=== PATIENT | male | born 1990 | race African-American/Black ===

== ENCOUNTER 2018-10-30 10:53 | Emergency (ER) | payer SELFPAY ==
[2018-10-30] MEDS ORDERED: OXYCODONE-ACETAMINOPHEN 5-325 MG TABLET PO ONE (11:12)
[2018-10-30] MEDS ORDERED: DIPH/PERTUSS(ACELL)/TETANUS VAC/PF 0.5 ML SYR (>=10YO) IM ONE ×2 (11:12→13:30)
--- NOTE | 2018-10-30 11:14 | ER Document Report ---
ED Medical Screen (RME) - General Chief Complaint: Fall Injury Stated Complaint: FINGER INJURY Time Seen by Provider: 10/30/18 11:11 Primary Care Provider: STEPHEN REED MD [Primary Care Provider] - Follow up as needed Mode of Arrival: Ambulatory Information source: Patient Notes: 28-year-old male presented to ED for injury to the second and third finger on the left hand and the right arm abrasion when he fell down the stairs. The second and third fingers do have deformity noted. Patient is alert oriented respirations regular and unlabored speaking in full sentences walks with even steady gait. Patient states he does have a history of Hodgkin's lymphoma and tonsils and adenoid. He states his tetanus is not up-to-date. He will be given a tetanus shot while in the emergency room. 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 I have greeted and performed a rapid initial assessment of this patient. A comprehensive ED assessment and evaluation of the patient, analysis of test results and completion of medical decision making process will be conducted by an additional ED providers. Dictation of this chart was performed using voice recognition software; therefore, there may be some unintended grammatical errors. TRAVEL OUTSIDE OF THE [place] IN LAST 30 DAYS: No - Related Data Allergies/Adverse Reactions: No Known Allergies Allergy (Unverified 10/30/18 10:56) Past Medical History - Social History Frequency of alcohol use: Heavy Drug Abuse: None Renal/ Medical History: Denies: Hx Peritoneal Dialysis Past Surgical History: Reports: Hx Tonsillectomy Physical Exam - Vital signs Vitals: Temp Pulse BP Pulse Ox 98 F 86 144/96 H 100 10/30/18 11:08 10/30/18 11:08 10/30/18 11:08 10/30/18 11:08 Course - Vital Signs Vital signs: Temp Pulse Resp BP Pulse Ox 98 F 86 144/96 H 100 10/30/18 11:08 10/30/18 11:08 10/30/18 11:08 10/30/18 11:08 Doctor's Discharge - Discharge Referrals: STEPHEN REED MD [Primary Care Provider] - Follow up as needed
--- NOTE | 2018-10-30 12:02 | RADIOLOGY REPORT (SQ) ---
EXAM DESCRIPTION: HAND LEFT 3 VIEWS COMPLETED DATE/TIME: 10/30/2018 11:31 am REASON FOR STUDY: injury 2 and3 finger left COMPARISON: None. EXAM PARAMETERS: NUMBER OF VIEWS: Three views. TECHNIQUE: AP, lateral and oblique radiographic images acquired of the left hand. LIMITATIONS: None. FINDINGS: MINERALIZATION: Normal. BONES: Dorsal dislocation of the 2nd and 3rd digits at the proximal interphalangeal joint. The is ad ditional mild ulnar displacement. No definite fracture identified. JOINTS: Dislocation at the 2nd and 3rd proximal interphalangeal joints. SOFT TISSUES: Soft tissue swelling about the 2nd and 3rd digit. No radiopaque foreign body. OTHER: No other significant finding. IMPRESSION: Dorsal dislocation of the 2nd and 3rd digits at the proximal interphalangeal joints. No definite fracture identified. TECHNICAL DOCUMENTATION: JOB ID: [id number] [employer]- All Rights Reserved Reading location - IP/workstation name: [email or web address]
[2018-10-30] MEDS ORDERED: LIDOCAINE 1.5% INJ-MPF (15 MG/ML) 20 ML AMPUL INJ ONE (14:04)
[2018-10-30] MEDS ORDERED: LIDOCAINE 1% INJ-PF (10 MG/ML) 30 ML SDV ONE (14:13)
--- NOTE | 2018-10-30 14:28 | ER Document Report ---
ED Fall - General Chief Complaint: Fall Injury Stated Complaint: FINGER INJURY Time Seen by Provider: 10/30/18 11:11 Primary Care Provider: STEPHEN ERED MD [Primary Care Provider] - Follow up as needed KAMALA MAYORGA DO [ACTIVE STAFF] - Follow up in 1 week Mode of Arrival: Ambulatory Information source: Patient TRAVEL OUTSIDE OF THE [place] IN LAST 30 DAYS: No - HPI Notes: Patient is a 28-year-old male that presents to the emergency department for chief complaint of left finger injury. Patient states that just prior to coming to the emergency room today he stumbled falling backwards landing on an outstretched left arm. He reports feeling like his left second and third fingers are broken. He did not take pain medicine prior to coming in. He denies any numbness or weakness. He reports difficulty bending his fingers. He denies previous injury to this hand. He is unsure of his last tetanus vaccine. Past Medical History: History of Hodgkin's lymphoma in remission Past Surgical History: Right anterior chest Mediport placement and removal Social History: Denies drugs alcohol and tobacco Family History: Reviewed and noncontributory for presenting illness Allergies: Reviewed, see documented allergy list. REVIEW OF SYSTEMS: CONSTITUTIONAL : No fever No chills No diaphoresis No recent illness EENT: No vision changes No congestion No sore throat CARDIOVASCULAR: No chest pain No palpitations RESPIRATORY: No shortness of breath No cough No difficulty breathing GASTROINTESTINAL: No abdominal pain No nausea No vomiting No diarrhea GENITOURINARY: No dysuria No hematuria No difficulty urinating MUSCULOSKELETAL: No back pain No leg pain Left hand pain SKIN: No rashes No lesions LYMPHATIC: No swollen, enlarged glands. NEUROLOGICAL: No lightheadedness No headache No weakness No paresthesias PSYCHIATRIC: No anxiety No depression PHYSICAL EXAMINATION: Vital signs reviewed, nursing noted reviewed. GENERAL: Well-appearing, well-nourished and in no acute distress. HEAD: Atraumatic, normocephalic. EYES: Eyes appear normal, extraocular movements intact, sclera anicteric, conjunctiva are normal. ENT: nares patent, oropharynx clear without exudates. Moist mucous membranes. NECK: Normal range of motion, supple without lymphadenopathy LUNGS: Breath sounds clear to auscultation bilaterally and equal. No wheezes rales or rhonchi. HEART: Regular rate and rhythm without murmurs ABDOMEN: Soft, nontender, normoactive bowel sounds. No rebound, guarding, or rigidity. No masses appreciated. EXTREMITIES: Deformity and decreased range of motion at left second and third PIP joint with associated bony tenderness. Normal left wrist and elbow exam NEUROLOGICAL: No focal neurological deficits. Moves all extremities spontaneously Motor and sensory grossly intact on exam. PSYCH: Normal mood, normal affect. SKIN: Warm, Dry, normal turgor, right elbow superficial linear abrasion with no bleeding - Related data Allergies/Adverse Reactions: No Known Allergies Allergy (Unverified 10/30/18 10:56) Past Medical History - General Information source: Patient - Social History Smoking Status: Current Every Day Smoker Frequency of alcohol use: Heavy Drug Abuse: None Family History: Reviewed & Not Pertinent Patient has suicidal ideation: No Patient has homicidal ideation: No Renal/ Medical History: Denies: Hx Peritoneal Dialysis Past Surgical History: Reports: Hx Tonsillectomy Physical Exam - Vital signs Vitals: Temp Pulse BP Pulse Ox 98 F 86 144/96 H 100 10/30/18 11:08 10/30/18 11:08 10/30/18 11:08 10/30/18 11:08 Course - Re-evaluation Re-evalutation: 10/30/18 14:26 Vitals reviewed. Nursing notes reviewed. Patient has a dislocation of his left second and third PIP. The dislocations were reduced. Patient placed in finger splints. Tolerated well. He will be referred to orthopedics for follow-up. Hand X-Ray 10/30/18 11:12 IMPRESSION: Dorsal dislocation of the 2nd and 3rd digits at the proximal interphalangeal joints. No definite fracture identified. - Vital Signs Vital signs: Temp Pulse Resp BP Pulse Ox 98 F 86 144/96 H 100 10/30/18 11:08 10/30/18 11:08 10/30/18 11:08 10/30/18 11:08 Procedures - Immobilization Left 3rd digit Time completed: 15:06 Pre-Proc Neuro Vasc Exam: Normal Immobilizer type: Finger splint (Static) Performed by: PCT Post-Proc Neuro Vasc Exam: Normal Alignment checked and good: Yes Left 2nd digit Time completed: 15:06 Pre-Proc Neuro Vasc Exam: Normal Immobilizer type: Finger splint (Static) Performed by: PCT Post-Proc Neuro Vasc Exam: Normal Alignment checked and good: Yes - Joint Reduction/Fracture Care Left 2nd digit Time completed: 14:45 Consent obtained: Yes - verbal Conscious sedation: No Pre-procedure NV exam: Yes Post-procedure NV exam: Yes Post-reduction x-ray: Joint reduced Reduction attempts: 1 Complications: No Notes: 10/30/18 15:07 Digital block of second digit performed using lidocaine 1%, 2 mL's. Good digit anesthesia achieved. Traction placed on dislocation with good reduction. Normal range of motion after reduction. Splinted for immobilization. Tolerated well with no complications. Left 3rd digit Time completed: 14:45 Consent obtained: Yes Pre-procedure NV exam: Yes Post-procedure NV exam: Yes Post-reduction x-ray: Joint reduced Reduction attempts: 1 Complications: No Notes: 10/30/18 15:08 Digital block of third digit performed using lidocaine 1%, 2 mL's. Good digit anesthesia achieved. Traction placed on dislocation with good reduction. Normal range of motion after reduction. Splinted for immobilization. Tolerated well with no complications. Discharge - Discharge Clinical Impression: Dislocation of PIP joint of finger Qualifiers: Encounter type: initial encounter Qualified Code(s): S63.289A - Dislocation of proximal interphalangeal joint of unspecified finger, initial encounter Avulsion fracture of middle phalanx of finger Qualifiers: Encounter type: initial encounter Fracture type: closed Qualified Code(s): S62.629A - Displaced fracture of middle phalanx of unspecified finger, initial encounter for closed fracture Condition: Stable Disposition: HOME, SELF-CARE Instructions: Finger Dislocation ([facility]) Additional Instructions: Please return to the emergency department if you have any worsening, or concern of your symptoms. Please return to the emergency department if you develop chest pain, difficulty breathing, severe abdominal pain, or ongoing vomiting. Please follow-up with your primary care physician in 2-3 days and any other recommended physicians. If prescribed, take all medications as directed. If you have any questions or concerns do not hesitate to return the emergency department for evaluation. Referrals: STEPHEN REED MD [Primary Care Provider] - Follow up as needed KAMALA MAYORGA DO [ACTIVE STAFF] - Follow up in 1 week
--- NOTE | 2018-10-30 14:54 | RADIOLOGY REPORT (SQ) ---
EXAM DESCRIPTION: HAND LEFT 2 VIEWS COMPLETED DATE/TIME: 10/30/2018 2:41 pm REASON FOR STUDY: dislocation reduction COMPARISON: 10/30/2018. EXAM PARAMETERS: NUMBER OF VIEWS: Three views. TECHNIQUE: AP, lateral and oblique radiographic images acquired of the left hand. LIMITATIONS: None. FINDINGS: MINERALIZATION: Normal. BONES: Interval closed reduction of the dislocations of the PIP joints of the 2nd and 3rd fingers, no w in anatomic alignment. There are displaced avulsion fractures involving the anterior base of the m iddle phalanx of the 2nd and 3rd fingers, demonstrated on the lateral image. JOINTS: No effusions. SOFT TISSUES: No soft tissue swelling. No foreign body. OTHER: No other significant finding. IMPRESSION: SATISFACTORY POSITIONING OF THE PIP JOINTS OF THE 2ND AND 3RD FINGERS FOLLOWING CLOSED R EDUCTION. THERE ARE DISPLACED AVULSION FRACTURES INVOLVING THE ANTERIOR BASE OF THE MIDDLE PHALANX O F THE 2ND AND 3RD FINGERS. TECHNICAL DOCUMENTATION: JOB ID: [id number] [employer]- All Rights Reserved Reading location - IP/workstation name: [email or web address]
[2018-10-30 15:41] VITALS: BP 136/82
== END 2018-10-30 15:41 | disposition home or self-care (01) ==
LOC: ER 10:53
DX: S63.271A Dislocation of unspecified interphalangeal joint of left index finger, initial encounter (principal); S63.273A Dislocation of unspecified interphalangeal joint of left middle finger, initial encounter; S62.629A Displaced fracture of middle phalanx of unspecified finger, initial encounter for closed fracture; S40.811A Abrasion of right upper arm, initial encounter; W10.9XXA Fall (on) (from) unspecified stairs and steps, initial encounter; Z23 Encounter for immunization; F17.210 Nicotine dependence, cigarettes, uncomplicated
CPT/HCPCS: 99283; 90471; 73130; 73120; 90715; 26770 ×2; J3490

== ENCOUNTER 2019-07-10 12:36 | Inpatient (IN) | payer SELFPAY ==
--- NOTE | 2019-07-10 12:50 | ER Document Report ---
ED General - General Chief Complaint: Overdose Stated Complaint: POSSIBLE OVERDOSE Time Seen by Provider: 07/10/19 12:46 Primary Care Provider: STEPHEN REED MD [NO LOCAL MD] - Follow up as needed Notes: HPI: 28-year-old male presents today with EMS secondary to "friends" finding him unconscious. EMS states when they arrived his skin was mottled his extremities were bluish in color. He did have a pulse. It took up to 6 mg of Narcan for the patient to become arousable. Hypothermia present. Patient did start to vomit copiously. Patient intermittently answers questions. ROS: See HPI Unable to obtain secondary to patient's condition Reviewed vital signs and nursing note as charted by RN. PHYSICAL EXAM: CONSTITUTIONAL: Patient answers questions intermittently. Piloerection is present HEAD: Normocephalic; atraumatic EYES: Pupils are now dilated. Sclerae nonicteric; no nystagmus ENT: Normal nose; no rhinorrhea; moist mucous membranes; pharynx without lesions noted NECK: Supple without meningismus; non-tender; no cervical lymphadenopathy, no masses CARD: Tachycardic and regular; no murmurs; symmetric distal pulses RESP: Normal chest excursion without splinting or tachypnea; breath sounds clear and equal bilaterally; scattered rhonchi ABD/GI: Normal bowel sounds; non-distended; soft, non-tender; no palpable organomegaly or masses BACK: The back appears normal and is non-tender to palpation EXT: Normal ROM in all joints; non-tender to palpation; no edema SKIN: piloerection is present NEURO: CN 2-12 intact; 5/5 bilateral upper and lower extremity strength with sensation intact to light touch TRAVEL OUTSIDE OF THE [place] IN LAST 30 DAYS: No - Related Data Allergies/Adverse Reactions: No Known Allergies Allergy (Unverified 10/30/18 10:56) Past Medical History - Social History Smoking Status: Unknown if Ever Smoked Family History: Reviewed & Not Pertinent Patient has suicidal ideation: No Patient has homicidal ideation: No Renal/ Medical History: Denies: Hx Peritoneal Dialysis Past Surgical History: Reports: Hx Tonsillectomy Physical Exam - Vital signs Vitals: Resp BP Pulse Ox 25 H 123/79 97 07/10/19 12:44 07/10/19 12:44 07/10/19 12:44 Course - Re-evaluation Re-evalutation: 07/10/19 12:49 Given the above history and physical we will place the patient on the monitor, provide nausea medications and fluids, will reassess the patient's mental status to evaluate for the need of a CT scan, and reassess the patient's abdomen. 07/10/19 12:56 EKG shows a heart rate of 99, tachycardia with no discernible P waves. Narrow QRS 07/10/19 14:27 Patient became more somnolent. We did provide Narcan with which did awaken the patient somewhat. This was 1 mg IV. Patient's mom is in the room and states it was "definitely heroin". We will provide a re-dosing of 2 mg. If this is successful, we will provide an infusion. 07/10/19 17:08 Imaging and labs as recorded. I will discuss with the hospitalist the choice of antibiotics. Patient was on the Narcan drip for him 20 minutes. He subsequently stood up took out his IV and started jumping up and down on the bed that he had to urinate. After the Narcan drip was out of the patient's arm for around 30 minutes he started to become somnolent again. We have replaced the IV and started the patient again on a Narcan drip. Patient is currently sleeping with stable BP with a heart rate of 110. - Vital Signs Vital signs: Temp Pulse Resp BP Pulse Ox 95.4 F L 14 127/87 H 100 07/10/19 14:28 07/10/19 14:01 07/10/19 14:01 07/10/19 14:01 - Laboratory Result Diagrams: 07/10/19 12:56 07/10/19 12:56 Laboratory results interpreted by me: 07/10/19 07/10/19 12:56 12:56 WBC 17.7 H RDW 14.5 H Lymph % (Auto) 10.1 L Absolute Neuts (auto) 15.0 H Seg Neutrophils % 84.5 H Carbon Dioxide 32 H Glucose 124 H Salicylates < 1.0 L Acetaminophen < 10 L Discharge - Discharge Clinical Impression: Overdose Qualifiers: Encounter type: initial encounter Hypothermia Qualifiers: Encounter type: initial encounter Qualified Code(s): T68.XXXA - Hypothermia, i nitial encounter Altered mental status Qualifiers: Altered mental status type: unspecified Qualified Code(s): R41.82 - Altered mental status, unspecified Condition: Serious Disposition: ADMITTED INPATIENT Admitting Provider: Jason (Hospitalist) Unit Admitted: ICU Referrals: STEPHEN REED MD [NO LOCAL MD] - Follow up as needed
--- NOTE | 2019-07-10 13:50 | EKG REPORT ---
SEVERITY:- ABNORMAL ECG - ATRIAL FIBRILLATION NONSPECIFIC INTRAVENTRICULAR CONDUCTION DELAY INFERIOR Q WAVES, PROBABLY NORMAL VARIATION : Confirmed by: Toby Glasgow MD 10-Jul-2019 13:50:31
[2019-07-10] MEDS ORDERED: NALOXONE HCL INJ 2 MG/2 ML DISP.SYRIN IV ONE ×2 (14:01→14:27)
[2019-07-10] MEDS ORDERED: NALOXONE HCL INJ/PF 0.4 MG/1 ML SDV IV ONE (14:08)
[2019-07-10] MEDS ORDERED: NALOXONE HCL INJ 2 MG/2 ML DISP.SYRIN ONE (15:01)
[2019-07-10] MEDS ORDERED: NORMAL SALINE 500 ML with NALOXONE HCL 2 MG IV PRN ×2 (15:11)
[2019-07-10] MEDS ORDERED: NALOXONE HCL IV PRN ×2 (15:16)
[2019-07-10] MEDS ORDERED: NORMAL SALINE IV PRN ×2 (15:16)
[2019-07-10 15:18] LABS: ABSOLUTE EOSINOPHILS # (AUTO) 0.1 10^3/uL (0.0-0.6); ABSOLUTE LYMPHOCYTES (AUTO) 1.8 10^3/uL (0.5-4.7); ABSOLUTE MONOCYTES (AUTO) 0.8 10^3/uL (0.1-1.4); BASOPHILS % (AUTO) 0.2 % (0-2); EOSINOPHILS % (AUTO) 0.5 % (0-6); HEMATOCRIT 45.4 % (37.9-51.0); HEMOGLOBIN 14.9 g/dL (13.5-17.0); LYMPHOCYTES % (AUTO) 10.1 % (13-45); MEAN CORPUSCULAR HEMOGLOBIN 27.3 pg (27.0-33.4); MEAN CORPUSCULAR HGB CONC 32.9 g/dL (32.0-36.0); MEAN CORPUSCULAR VOLUME 83 fl (80-97); MONOCYTES % (AUTO) 4.7 % (3-13); PLATELET COUNT 258 10^3/uL (150-450); RED BLOOD COUNT 5.46 10^6/uL (4.35-5.55); RED CELL DISTRIBUTION WIDTH 14.5 % (11.5-14.0); SEGMENTED NEUTROPHILS % (AUTO) 84.5 % (42-78); TOTAL CELLS COUNTED % (AUTO) 100 %; WHITE BLOOD COUNT 17.7 10^3/uL (4.0-10.5)
[2019-07-10 15:38] LABS: ALKALINE PHOSPHATASE 108 U/L (38-126); ANION GAP 12 (5-19); ASPARTATE AMINO TRANSFERASE 38 U/L (17-59); BILIRUBIN,TOTAL 0.3 mg/dL (0.2-1.3); BLOOD UREA NITROGEN 18 mg/dL (7-20); CALCIUM 9.4 mg/dL (8.4-10.2); CARBON DIOXIDE 32 mmol/L (22-30); CHLORIDE 98 mmol/L (98-107); GLUCOSE 124 mg/dL (75-110); POTASSIUM 3.9 mmol/L (3.6-5.0); TOTAL PROTEIN 7.9 g/dL (6.3-8.2)
[2019-07-10 15:46] LABS: ACETAMINOPHEN < 10 ug/mL (10-30); ALCOHOL < 10 mg/dL (NONE DETECTED); SALICYLATE < 1.0 mg/dL (2.0-20.0)
--- NOTE | 2019-07-10 16:18 | RADIOLOGY REPORT (SQ) ---
EXAM DESCRIPTION: CHEST SINGLE VIEW COMPLETED DATE/TIME: 07/10/2019 4:01 pm REASON FOR STUDY: 17: overdose with AMS COMPARISON: None. EXAM PARAMETERS: NUMBER OF VIEWS: One view. TECHNIQUE: Single frontal radiographic view of the chest acquired. RADIATION DOSE: NA LIMITATIONS: None. FINDINGS: LUNGS AND PLEURA: Airspace disease in the left lower lobe. Possible faint involvement of the upper lobes. No pleural effusion or pneumothorax. MEDIASTINUM AND HILAR STRUCTURES: No masses. Contour normal. HEART AND VASCULAR STRUCTURES: Heart normal in size. Normal vasculature. BONES: No acute findings. HARDWARE: None in the chest. OTHER: No other significant finding. IMPRESSION: AIRSPACE DISEASE IN THE LEFT LOWER LOBE MAY BE DUE TO PNEUMONIA AND/OR ASPIRATION. POSS IBLE FAINT INVOLVEMENT OF THE UPPER LOBES. TECHNICAL DOCUMENTATION: JOB ID: [id number] [employer]- All Rights Reserved Reading location - IP/workstation name: [email or web address]
[2019-07-10] MEDS ORDERED: NORMAL SALINE 1000 ML 1,000 ML IV ONE (17:10)
[2019-07-10] MEDS ORDERED: DEXTROSE 40% GEL 15 GM TUBE PO PRN ×2 (18:08)
[2019-07-10] MEDS ORDERED: DEXTROSE 50%-WATER 25 GM/50 ML DISP.SYRIN IV PRN ×2 (18:08)
[2019-07-10] MEDS ORDERED: GLUCAGON,HUMAN RECOMB 1 MG INJ SUBCUT PRN (18:08)
[2019-07-10] MEDS ORDERED: NORMAL SALINE 1000 ML 1,000 ML IV PRN (18:08)
[2019-07-10] MEDS ORDERED: ACETAMINOPHEN 650 MG SUPP.RECT PR PRN (18:08)
[2019-07-10 18:22] LABS: AMORPHOUS SEDIMENT,URINE TRACE /HPF; APPEARANCE,URINE SLIGHTLY-CLOUDY; BILIRUBIN,URINE NEGATIVE (NEGATIVE); COLOR,URINE YELLOW; GLUCOSE, URINE >=500 mg/dL (NEGATIVE); KETONES,URINE NEGATIVE (NEGATIVE); LEUKOCYTE ESTERASE,URINE NEGATIVE (NEGATIVE); NITRITE,URINE NEGATIVE (NEGATIVE); PROTEIN,URINE 100 mg/dL (NEGATIVE); URINE SPECIFIC GRAVITY 1.018; UROBILINOGEN,URINE NEGATIVE mg/dL (<2.0)
--- NOTE | 2019-07-10 18:34 | CRITICAL CARE ADMISSION REPORT ---
HPI Date:: 07/10/19 Time:: 18:00 Reason for ICU Reason:: Narcan drip and obtundation HPI: This patient is a 28 yo man who was found by friends on the floor of a room mini gela responsive and taken to the ED where he was given narcan and responded. He has a history of drug abuse and according to family is employed has not missed work and is not 'hard core' addict nor has he been suicidal. This seems to be an accidental OD. He was placed on a narcan drip but became agitated and pulled out iv stood up to go to the bathroom and collapsed back in bed minimally responsive again. IV restarted and narcan drip reapplied necessitating the ICU admission. Of note he was found in vomit and appears to have aspirated with an infiltrate on his L base. Temp initially 92. Now 96. In afib on admission now NSR. History obtained from:: Family and ED doctor - Diagnosis/Plan (1) Overdose Qualifiers: Encounter type: initial encounter Is this a current diagnosis for this admission?: Yes Plan: Continue narcan drip to keep RR > 10 and not precipitate a WD response. A anticipate he will be awake and off narcan by tomorrow. (2) Aspiration into airway Qualifiers: Encounter type: initial encounter Qualified Code(s): T17.908A - Unspecified foreign body in respiratory tract, part unspecified causing other injury, initial encounter Is this a current diagnosis for this admission?: Yes Plan: With being found in vomit and evidence of aspiration on CXR he most likely aspirated. No antibiotics, supprotive care with PRN nebulizers and O2. (3) Hypothermia Qualifiers: Encounter type: initial encounter Qualified Code(s): T68.XXXA - Hypothermia, initial encounter Is this a current diagnosis for this admission?: Yes Plan: Quickly resolving. (4) Atrial fib/flutter, transient Is this a current diagnosis for this admission?: Yes Plan: Resolved. - . Plan Summary: Keep narcan drip and titrate to keep RR > 10. Past Medical History Musculoskeletal History Note: Pulled muscle in shoulder Psychiatric Medical History: Reports: Substance Abuse, Other - For a history of 5 years off and on according to mother. Past Surgical History Past Surgical History: Reports: Tonsillectomy Social/Family History - Social History Smoking Status: Unknown if Ever Smoked Drugs: Other - Narcotics-details not known - Medication/Allergies Allergies/Adverse Reactions: No Known Allergies Allergy (Unverified 10/30/18 10:56) Review of Systems ROS unobtainable: Due to mental status Physical Exam Vital Signs: Temp Pulse Resp BP Pulse Ox 95.4 F L 38 H 115/76 100 07/10/19 14:28 07/10/19 18:01 07/10/19 18:01 07/10/19 18:01 Intake & Output 07/09/19 07/10/19 07/11/19 06:59 06:59 06:59 Weight 64.3 kg Weight/Height Weight 64.3 kg General appearance: PRESENT: no acute distress, well-developed, well-nourished Head exam: PRESENT: atraumatic, normocephalic Eye exam: PRESENT: conjunctiva pink, EOMI, PERRLA. ABSENT: scleral icterus Ear exam: PRESENT: normal external ear exam Mouth exam: PRESENT: moist, tongue midline Respiratory exam: PRESENT: clear to auscultation michelle, tachypnea. ABSENT: rales, rhonchi, wheezes Cardiovascular exam: PRESENT: RRR. ABSENT: diastolic murmur, rubs, systolic murmur Pulses: PRESENT: normal dorsalis pedis pul GI/Abdominal exam: PRESENT: normal bowel sounds, soft. ABSENT: distended, guarding, mass, organolmegaly, rebound, tenderness Rectal exam: PRESENT: deferred Extremities exam: PRESENT: full ROM. ABSENT: calf tenderness, clubbing, pedal edema Neurological exam: PRESENT: altered, other - Speaks a word or 2. Not oriented Skin exam: PRESENT: dry, intact, warm. ABSENT: cyanosis, rash Laboratory/Radiographs Laboratory Results: 07/10/19 12:56 07/10/19 12:56 07/10/19 07/10/19 12:56 12:56 WBC 17.7 H RBC 5.46 Hgb 14.9 Hct 45.4 MCV 83 MCH 27.3 MCHC 32.9 RDW 14.5 H Plt Count 258 Seg Neutrophils % 84.5 H Sodium 141.7 Potassium 3.9 Chloride 98 Carbon Dioxide 32 H Anion Gap 12 BUN 18 Creatinine 0.81 Est GFR ( Amer) > 60 Glucose 124 H Calcium 9.4 Total Bilirubin 0.3 AST 38 Alkaline Phosphatase 108 Total Protein 7.9 Albumin 5.0 Impressions: Chest X-Ray 07/10/19 15:43 IMPRESSION: AIRSPACE DISEASE IN THE LEFT LOWER LOBE MAY BE DUE TO PNEUMONIA AND/OR ASPIRATION. POSSIBLE FAINT INVOLVEMENT OF THE UPPER LOBES. All labs, radiographs, diagnostic studies and EKGs were personally reviewed: Yes In addition, reports of radiographic and diagnostic studies were read: Yes Critical Time Critical Time (minutes): 40 -: The care of a critically ill patient is dynamic. This note represents a static moment in the admission process. Orders and treatments may be given simul taneously and urgently, and time is not employee relations representative of the treatment process. This patient requires Critical Care secondary to life threatening organ or limb dysfunction. Without Critical Care services, the patient is at risk for increased mortality and morbidity.
[2019-07-10 18:51] LABS: URINE BARBITURATES SCREEN NEGATIVE; URINE COCAINE SCREEN NEGATIVE; URINE METHADONE SCREEN NEGATIVE; URINE PHENCYCLIDINE SCREEN NEGATIVE
[2019-07-10] MEDS: NORMAL SALINE 500 ML with NALOXONE HCL 2 MG IV PRN ×4 (19:00→20:27)
[2019-07-10 19:03] LABS: URINE BENZODIAZEPINES SCREEN UNCONFIRMED POSITIVE
[2019-07-10 19:05] LABS: URINE MARIJUANA (THC) SCREEN UNCONFIRMED POSITIVE
[2019-07-10] MEDS: ENOXAPARIN SODIUM INJ 40 MG/0.4 ML DISP.SYRIN SUBCUT SCH (20:18)
[2019-07-11] MEDS ORDERED: NORMAL SALINE 1000 ML 1,000 ML IV PRN (03:00)
[2019-07-11 04:10] LABS: ABSOLUTE LYMPHOCYTES (AUTO) 1.6 10^3/uL (0.5-4.7); ABSOLUTE MONOCYTES (AUTO) 0.5 10^3/uL (0.1-1.4); EOSINOPHILS % (AUTO) 0.2 % (0-6); TOTAL CELLS COUNTED % (AUTO) 100 %
[2019-07-11 04:17] LABS: ABSOLUTE NEUT (AUTO) 8.3 10^3/uL (1.7-8.2); BASOPHILS % (AUTO) 0.2 % (0-2); HEMATOCRIT 41.1 % (37.9-51.0); HEMOGLOBIN 13.8 g/dL (13.5-17.0); LYMPHOCYTES % (AUTO) 15.8 % (13-45); MEAN CORPUSCULAR HEMOGLOBIN 27.6 pg (27.0-33.4); MEAN CORPUSCULAR HGB CONC 33.7 g/dL (32.0-36.0); MEAN CORPUSCULAR VOLUME 82 fl (80-97); MONOCYTES % (AUTO) 4.3 % (3-13); PLATELET COUNT 228 10^3/uL (150-450); RED BLOOD COUNT 5.02 10^6/uL (4.35-5.55); RED CELL DISTRIBUTION WIDTH 14.5 % (11.5-14.0); SEGMENTED NEUTROPHILS % (AUTO) 79.5 % (42-78); WHITE BLOOD COUNT 10.5 10^3/uL (4.0-10.5)
[2019-07-11] MEDS ORDERED: NALOXONE HCL INJ/PF 0.4 MG/1 ML SDV IV PRN (06:33)
[2019-07-11] MEDS: ALBUTEROL SULFATE 0.083% NEB 2.5 MG/3 ML AMPUL NEB PRN (11:21)
[2019-07-11] MEDS: ENOXAPARIN SODIUM INJ 40 MG/0.4 ML DISP.SYRIN SUBCUT SCH (12:55)
--- NOTE | 2019-07-11 13:25 | PDOC CRITICAL CARE PROG REPORT ---
General Date:: 07/11/19 ICU Day:: 2 Hospital Day:: 2 Resuscitation Status: Full Code Events in the past 12 to 24 Hours:: Off narcan drip. Still somewhat SOB. Review of systems relevant to events:: Respiratory. Reason for ICU Addmission:: Narcan drip and obtundation now off with normal mental status. - Medications: Medications reviewed and adjusted accordingly: Yes Vasopressors:: None Sedation:: None Physical Exam Vital Signs: Temp Pulse Resp BP Pulse Ox 98.2 F 101 H 32 H 126/74 H 96 07/11/19 12:00 07/11/19 12:00 07/11/19 12:00 07/11/19 12:00 07/11/19 12:00 Intake & Output 07/10/19 07/11/19 07/12/19 06:59 06:59 06:59 Intake Total 2230 Output Total 1180 250 Balance 1050 -250 Weight 68.1 kg Weight/Height Weight 68.1 kg Height 5 ft 6 in General appearance: PRESENT: no acute distress, well-developed, well-nourished Head exam: PRESENT: atraumatic, normocephalic Eye exam: PRESENT: conjunctiva pink, EOMI, PERRLA. ABSENT: scleral icterus Ear exam: PRESENT: normal external ear exam Mouth exam: PRESENT: moist, tongue midline Neck exam: ABSENT: carotid bruit, JVD, lymphadenopathy, thyromegaly Respiratory exam: PRESENT: clear to auscultation michelle. ABSENT: rales, rhonchi, wheezes Cardiovascular exam: PRESENT: tachycardia Pulses: PRESENT: normal dorsalis pedis pul GI/Abdominal exam: PRESENT: normal bowel sounds, soft. ABSENT: distended, guarding, mass, organolmegaly, rebound, tenderness Rectal exam: PRESENT: deferred Extremities exam: PRESENT: full ROM. ABSENT: calf tenderness, clubbing, pedal edema Neurological exam: PRESENT: alert, awake, oriented to person, oriented to place, oriented to time, oriented to situation, CN II-XII grossly intact. ABSENT: motor sensory deficit Psychiatric exam: PRESENT: appropriate affect, normal mood. ABSENT: homicidal ideation, suicidal ideation Skin exam: PRESENT: dry, intact, warm. ABSENT: cyanosis, rash Laboratory/Radiographs Laboratory Results: 07/11/19 03:49 07/10/19 12:56 07/10/19 07/10/19 07/10/19 12:56 12:56 16:56 WBC 17.7 H RBC 5.46 Hgb 14.9 Hct 45.4 MCV 83 MCH 27.3 MCHC 32.9 RDW 14.5 H Plt Count 258 Seg Neutrophils % 84.5 H Sodium 141.7 Potassium 3.9 Chloride 98 Carbon Dioxide 32 H Anion Gap 12 BUN 18 Creatinine 0.81 Est GFR ( Amer) > 60 Glucose 124 H Calcium 9.4 Total Bilirubin 0.3 AST 38 Alkaline Phosphatase 108 Total Protein 7.9 Albumin 5.0 Urine Color YELLOW Urine Appearance SLIGHTLY-CLOUDY Urine pH 5.0 Ur Specific [place] 1.018 Urine Protein 100 H Urine Glucose (UA) >=500 H Urine Ketones NEGATIVE Urine Blood NEGATIVE Urine Nitrite NEGATIVE Ur Leukocyte Esterase NEGATIVE Urine WBC (Auto) 8 Urine RBC (Auto) 2 07/11/19 03:49 WBC 10.5 RBC 5.02 Hgb 13.8 Hct 41.1 MCV 82 MCH 27.6 MCHC 33.7 RDW 14.5 H Plt Count 228 Seg Neutrophils % 79.5 H Sodium Potassium Chloride Carbon Dioxide Anion Gap BUN Creatinine Est GFR ( Amer) Glucose Calcium Total Bilirubin AST Alkaline Phosphatase Total Protein Albumin Urine Color Urine Appearance Urine pH Ur Specific [place] Urine Protein Urine Glucose (UA) Urine Ketones Urine Blood Urine Nitrite Ur Leukocyte Esterase Urine WBC (Auto) Urine RBC (Auto) Impressions: Chest X-Ray 07/10/19 15:43 IMPRESSION: AIRSPACE DISEASE IN THE LEFT LOWER LOBE MAY BE DUE TO PNEUMONIA AND/OR ASPIRATION. POSSIBLE FAINT INVOLVEMENT OF THE UPPER LOBES. All labs, radiographs, diagnostic studies and EKGs were personally reviewed: Yes In addition, reports of radiographic and diagnostic studies were read: Yes Assessment and Plan - Diagnosis (1) Overdose Qualifiers: Encounter type: initial encounter Is this a current diagnosis for this admission?: Yes Plan: Resolved. Counseled on dangers of narcotics. Not suicidal. Does not want rehab. (2) Aspiration into airway Qualifiers: Encounter type: initial encounter Qualified Code(s): T17.908A - Unspecified foreign body in respiratory tract, part unspecified causing other injury, initial encounter Is this a current diagnosis for this admission?: Yes Plan: The only reason he is here. Treatment includes no abx. Supportive care, nebulizers and oxygen if needed. Pneumonitis can get worse in 48-72 hours. His fever is gone, WBC normal and RA o2 saturations are in the 90's. Nevetheless, with walking he gets SOB and feels uncomfortable and unsafe going home. Will downgrade to medical and if improved tomorrow sent home. (3) Hypothermia Qualifiers: Encounter type: initial encounter Qualified Code(s): T68.XXXA - Hypothermia, initial encounter Is this a current diagnosis for this admission?: Yes Plan: Resolved (4) Atrial fib/flutter, transient Is this a current diagnosis for this admission?: Yes Plan: Resolved. Related to hypothermia and aspiration. Plan Summary: As above. Hope to send home tomorrow. Critical Time Critical Time (minutes): 30 Level of Care: MEDICAL Anticipated discharge: Home Within: within 24 hours -: 1. The care of a critical patient is a dynamic process. This note is a healthcare sales representative synopsis but static in nature. The timeframe for treatments given in order is not necessarily the actual time these treatments may have been done. 2. This patient requires critical care secondary to ongoing requirements for therapy not offered or safe outside the critical care environment. Transfer to a lower level of care will result in altered life or limb morbidity and mortality. 3. Multidisciplinary rounds completed. 4. ABCDE bundle addressed.
[2019-07-11] MEDS: ACETAMINOPHEN 325 MG TABLET PO PRN (20:06)
[2019-07-12] MEDS: ALBUTEROL SULFATE 0.083% NEB 2.5 MG/3 ML AMPUL NEB PRN ×2 (10:19→20:42)
[2019-07-12 10:31] LABS: ABSOLUTE BASOPHILS # (AUTO) 0.1 10^3/uL (0.0-0.2); ABSOLUTE EOSINOPHILS # (AUTO) 0.8 10^3/uL (0.0-0.6); ABSOLUTE LYMPHOCYTES (AUTO) 2.1 10^3/uL (0.5-4.7); ABSOLUTE MONOCYTES (AUTO) 0.8 10^3/uL (0.1-1.4); ABSOLUTE NEUT (AUTO) 11.6 10^3/uL (1.7-8.2); BASOPHILS % (AUTO) 0.4 % (0-2); EOSINOPHILS % (AUTO) 5.3 % (0-6); HEMATOCRIT 41.7 % (37.9-51.0); HEMOGLOBIN 13.9 g/dL (13.5-17.0); LYMPHOCYTES % (AUTO) 13.6 % (13-45); MEAN CORPUSCULAR HEMOGLOBIN 27.1 pg (27.0-33.4); MEAN CORPUSCULAR HGB CONC 33.3 g/dL (32.0-36.0); MEAN CORPUSCULAR VOLUME 81 fl (80-97); MONOCYTES % (AUTO) 5.1 % (3-13); PLATELET COUNT 234 10^3/uL (150-450); RED BLOOD COUNT 5.13 10^6/uL (4.35-5.55); RED CELL DISTRIBUTION WIDTH 14.5 % (11.5-14.0); SEGMENTED NEUTROPHILS % (AUTO) 75.6 % (42-78); TOTAL CELLS COUNTED % (AUTO) 100 %; WHITE BLOOD COUNT 15.3 10^3/uL (4.0-10.5)
--- NOTE | 2019-07-12 11:08 | RADIOLOGY REPORT (SQ) ---
EXAM DESCRIPTION: CHEST 2 VIEWS COMPLETED DATE/TIME: 07/12/2019 10:14 am REASON FOR STUDY: PNA COMPARISON: 07/10/2019. EXAM PARAMETERS: NUMBER OF VIEWS: two views TECHNIQUE: Digital Frontal and Lateral radiographic views of the chest acquired. RADIATION DOSE: NA LIMITATIONS: none FINDINGS: LUNGS AND PLEURA: Worsening faint airspace disease in both lungs, left greater than right. No pleural effusion. No pneumothorax. MEDIASTINUM AND HILAR STRUCTURES: No masses or contour abnormalities. HEART AND VASCULAR STRUCTURES: Heart normal size. No evidence for failure. BONES: No acute findings. HARDWARE: None in the chest. OTHER: No other significant finding. IMPRESSION: WORSENING FAINT AIRSPACE DISEASE. TECHNICAL DOCUMENTATION: JOB ID: [id number] [employer]- All Rights Reserved Reading location - IP/workstation name: [email or web address]
[2019-07-12] MEDS ORDERED: PIPERACILLIN/TAZOBACTAM 3.375 GM VIAL IV SCH (12:00)
[2019-07-12] MEDS: PIPERACILLIN SODIUM/TAZOBACTAM 3.375 GM in NORMAL SALINE 100 ML IV SCH ×2 (12:27→17:51)
[2019-07-12] MEDS ORDERED: VANCOMYCIN HCL INJ 1000 MG VIAL IV SCH (14:30)
--- NOTE | 2019-07-12 14:40 | PDOC PROGRESS REPORT ---
Subjective Progress Note for:: 07/12/19 Subjective:: Patient is a 28-year-old -[place] male who initially presented with drug overdose methamphetamine/Xanax/heroin and subsequent aspiration with respiratory failure, admitted to the ICU. Later stabilized for transfer to floor. Unfortunately, he continued spiking fevers and work-up for bacterial endocarditis aspiration pneumonia has begun. Reason For Visit: ACCIDENTAL NARCOTIC OD ON NARCAN DRIP Physical Exam Vital Signs: Temp Pulse Resp BP Pulse Ox 98.8 F 88 16 116/73 98 07/12/19 11:04 07/12/19 11:04 07/12/19 11:04 07/12/19 11:04 07/12/19 11:04 Intake & Output 07/11/19 07/12/19 07/13/19 06:59 06:59 06:59 Intake Total 2230 2440 680 Output Total 1180 550 Balance 1050 1890 680 Weight 68.1 kg 68.2 kg General appearance: PRESENT: no acute distress, well-developed, well-nourished Head exam: PRESENT: atraumatic, normocephalic Eye exam: PRESENT: conjunctiva pink Mouth exam: PRESENT: moist Respiratory exam: PRESENT: crackles - Diffuse and worse at bases, mild to moderate, unlabored. ABSENT: accessory muscle use, wheezes Cardiovascular exam: PRESENT: RRR. ABSENT: diastolic murmur, rubs, systolic murmur GI/Abdominal exam: PRESENT: normal bowel sounds, soft. ABSENT: distended, guarding, mass, organolmegaly, rebound, tenderness Musculoskeletal exam: PRESENT: ambulatory Neurological exam: PRESENT: alert, awake Psychiatric exam: PRESENT: appropriate affect, normal mood Skin exam: PRESENT: dry, intact, warm Results Laboratory Results: 07/12/19 10:04 07/10/19 12:56 07/12/19 07/12/19 10:04 10:04 WBC 15.3 H RBC 5.13 Hgb 13.9 Hct 41.7 MCV 81 MCH 27.1 MCHC 33.3 RDW 14.5 H Plt Count 234 Seg Neutrophils % 75.6 Lactic Acid 1.1 Impressions: Chest X-Ray 07/12/19 00:00 IMPRESSION: WORSENING FAINT AIRSPACE DISEASE. Assessment and Plan - Diagnosis (1) Aspiration pneumonia due to inhalation of vomitus Is this a current diagnosis for this admission?: Yes Plan: Recurrent on admission after drug overdose Vancomycin/Zosyn IV started 07/12 Respiratory culture Blood cultures Bronchial hygiene, supplemental oxygen as needed to maintain oxygen saturation 94% or greater, incentive spirometer (2) Sepsis Qualifiers: Sepsis type: sepsis due to unspecified organism Sepsis acute organ dysfunction status: with acute organ dysfunction Severe sepsis acute organ dysfunction type: acute respiratory failure Acute respiratory failure type: with hypoxia Severe sepsis shock status: without septic shock Qualified Code(s): A41.9 - Sepsis, unspecified organism; R65.20 - Severe sepsis without septic shock; J96.01 - Acute respiratory failure with hypoxia Is this a current diagnosis for this admission?: Yes Plan: Source is aspiration pneumonia, possibly bacterial endocarditis Broad antibiotics as above IV fluids as needed, if fluid unresponsiveness in ICU for pressors Recheck lactate if continued fevers and worsening symptoms TTE to rule out bacterial endocarditis, follow-up with [facility] afterwards Blood cultures initially negative, repeat blood cultures pending (3) Intravenous drug abuse, continuous Is this a current diagnosis for this admission?: Yes Plan: At high risk for bacterial endocarditis Counseled on cessation (4) Tobacco abuse Is this a current diagnosis for this admission?: Yes Plan: Counseled on cessation, daily nicotine patch nicotine patch per patient request (5) Amphetamine abuse Is this a current diagnosis for this admission?: Yes Plan: Counseled on cessation (6) Acute hypoxemic respiratory failure Is this a current diagnosis for this admission?: Yes Plan: Treated aspiration pneumonia, treatment as above (7) Altered mental status Qualifiers: Altered mental status type: unspecified Qualified Code(s): R41.82 - Altered mental status, unspecified Is this a current diagnosis for this admission?: Yes Plan: Due to hypoxia respiratory failure and aspiration pneumonia, resolved (8) Atrial fib/flutter, transient Is this a current diagnosis for this admission?: Yes Plan: Resolved. Related to hypothermia and aspiration. - Time Time Spent with patient: 35 or more minutes Medications reviewed and adjusted accordingly: Yes Anticipated discharge: Home - Inpatient Certification Medical Necessity: Significant Comorbidiites Make Outpatient Treatment Too Risky, Need Close Monitoring Due to Risk of Patient Decompensation, Need for IV Antibiotics
[2019-07-12] MEDS: NICOTINE 21 MG/24 HR PATCH.TD24 TD SCH (15:40)
[2019-07-12] MEDS: ACETAMINOPHEN 325 MG TABLET PO PRN (15:40)
[2019-07-12] MEDS: VANCOMYCIN HCL 1,500 MG in DEXTROSE 5%-WATER 250 ML IV SCH (21:09)
[2019-07-13] MEDS: PIPERACILLIN SODIUM/TAZOBACTAM 3.375 GM in NORMAL SALINE 100 ML IV SCH ×5 (01:01→23:24)
[2019-07-13] MEDS: ALBUTEROL SULFATE 0.083% NEB 2.5 MG/3 ML AMPUL NEB PRN ×2 (10:58→20:15)
[2019-07-13] MEDS: VANCOMYCIN HCL 1,500 MG in DEXTROSE 5%-WATER 250 ML IV SCH ×2 (11:01→21:15)
[2019-07-13] MEDS: NICOTINE 21 MG/24 HR PATCH.TD24 TD SCH (11:01)
--- NOTE | 2019-07-13 17:34 | PDOC PROGRESS REPORT ---
Subjective Progress Note for:: 07/13/19 Subjective:: Patient is a 28-year-old -[place] male who initially presented with drug overdose methamphetamine/Xanax/heroin and subsequent aspiration with respiratory failure, admitted to the ICU. Later stabilized for transfer to floor. Unfortunately, he continued spiking fevers and work-up for bacterial endocarditis aspiration pneumonia has begun. 07/13: Extensive discussion with patient and his mother today about my concerns for possible bacterial endocarditis. Patient states he is not worried about this at all and wants to leave the hospital as soon as possible. He was angry that the nurses have had such difficulty placing an IV on him and multiple blown IVs. 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 I offered to order the patient a PICC line which would alleviate this problem and he adamantly refused this. He also began getting angry and cursing about various aspects of his care in the hospital including the inability to smoke. TTE has been done but not read. Patient has no new complaints other than more productive cough and feeling poorly overall. Reason For Visit: ACCIDENTAL NARCOTIC OD ON NARCAN DRIP Physical Exam Vital Signs: Temp Pulse Resp BP Pulse Ox 99.1 F 75 18 128/71 H 98 07/13/19 14:44 07/13/19 14:44 07/13/19 14:44 07/13/19 14:44 07/13/19 14:44 Intake & Output 07/12/19 07/13/19 07/14/19 06:59 06:59 06:59 Intake Total 2440 2070 970 Output Total 550 Balance 1890 2070 970 Weight 68.2 kg 61 kg Results Laboratory Results: 07/12/19 10:04 07/10/19 12:56 Impressions: Chest X-Ray 07/12/19 00:00 IMPRESSION: WORSENING FAINT AIRSPACE DISEASE. Assessment and Plan - Diagnosis (1) Aspiration pneumonia due to inhalation of vomitus Is this a current diagnosis for this admission?: Yes Plan: Recurrent on admission after drug overdose Vancomycin/Zosyn IV started 07/12, tolerating well Respiratory culture Blood cultures Bronchial hygiene, supplemental oxygen as needed to maintain oxygen saturation 94% or greater, incentive spirometer Given that patient feels worse today and his white blood cell count has risen again with recurring fevers intermittently, advanced chest imaging is warranted to rule out empyema/loculated pneumonia which would necessitate a chest tube being placed (2) Sepsis Qualifiers: Sepsis type: sepsis due to unspecified organism Sepsis acute organ dysfunction status: with acute organ dysfunction Severe sepsis acute organ dysfunction type: acute respiratory failure Acute respiratory failure type: with hypoxia Severe sepsis shock status: without septic shock Qualified Code(s): A41.9 - Sepsis, unspecified organism; R65.20 - Severe sepsis without septic shock; J96.01 - Acute respiratory failure with hypoxia Is this a current diagnosis for this admission?: Yes Plan: Source is aspiration pneumonia, possibly bacterial endocarditis Broad antibiotics as above IV fluids as needed, if fluid unresponsiveness in ICU for pressors Recheck lactate if continued fevers and worsening symptoms TTE to rule out bacterial endocarditis, consult cardiology for their opinion on follow-up with [facility] afterwards Blood cultures on admission negative (3) Intravenous drug abuse, continuous Is this a current diagnosis for this admission?: Yes Plan: At high risk for bacterial endocarditis, TTE, follow-up results Counseled on cessation (4) Tobacco abuse Is this a current diagnosis for this admission?: Yes (5) Amphetamine abuse Is this a current diagnosis for this admission?: Yes (6) Acute hypoxemic respiratory failure Is this a current diagnosis for this admission?: Yes (7) Altered mental status Qualifiers: Altered mental status type: unspecified Qualified Code(s): R41.82 - Altered mental status, unspecified Is this a current diagnosis for this admission?: Yes (8) Atrial fib/flutter, transient Is this a current diagnosis for this admission?: Yes - Time Time Spent with patient: 25-34 minutes Anticipated discharge: Home - Inpatient Certification Medical Necessity: Significant Comorbidiites Make Outpatient Treatment Too Risky, Need Close Monitoring Due to Risk of Patient Decompensation, Need for IV Antibiotics
--- NOTE | 2019-07-13 19:37 | XCELERA REPORT ---
[address] [address] Transthoracic Echocardiogram Report Name: JADE THAKKAR Age: 28 yrs Gender: Male : 1990 Patient Status: Inpatient Patient Location: [facility]A Study Date: 07/12/2019 06:30 PM Height: 66 in Weight: 150 lb BSA: 1.8 m2 Reason For Study: suspected bact endocarditis Ordering Physician: BHARATH SHELBY Performed By: Xiomara Parmar Interpretation Summary No signif. posterior peric. effusiion. No vegetation seen on the AV and not the MV. There may be a small calcified vegetation on the TV without causing severe TR, in fact TR was mild and no RV enlargement and no pulm hypertension. PV is not well seen. AV is 3 cusps and no and no AR. MV is normal with no MS or MVP and mild MR with no LA enlargement. LV is not enlarged, and EF is 65%, but IVS appears hypokinetic, with no other regional wall motion abnormality. There is LV diastolic dysfunction by TDI. RH is not enlarged, RVSP is not increased. IVC is normal. MMode/2D Measurements & Calculations RVDd: 2.2 cm LVIDd: 4.8 cm FS: 34.8 % Ao root diam: 2.5 cm IVSd: 0.80 cm LVIDs: 3.1 cm EDV(Teich): Ao root area: LVPWd: 0.92 cm 107.0 ml ESV(Teich): 38.7 ml4.9 cm2 LA dimension: 2.3 cm EF(Teich): 63.9 % LVLd ap4: 6.8 cm SV(MOD-sp4): EDV(MOD-sp4): 48.0 ml 79.0 ml LVLs ap4: 6.1 cm ESV(MOD-sp4): 31.0 ml EF(MOD-sp4): 60.8 % Doppler Measurements & Calculations MV E max megan: MV P1/2t max megan: Ao V2 max: LV V1 max P.0 cm/sec 94.5 cm/sec 123.8 cm/sec 4.8 mmHg MV A max megan: MV P1/2t: 56.2 msec Ao max PG: LV V1 max: 57.8 cm/sec 6.1 mmHg 110.1 cm/sec MV E/A: 1.4 MVA(P1/2t): 3.9 cm2 MV dec slope: 492.3 cm/sec2 MV dec time: 0.11 sec PA V2 max: PI end-d megan: TR max megan: MV P1/2t-pr_phl: 123.5 cm/sec 126.2 cm/sec 206.3 cm/sec 56.2 msec PA max PG: TR max P.1 mmHg 17.0 mmHg I WMSI = 1.31 % Normal = 69 Segments Size X - Cannot 1 - Normal 2 - 3 - Akinetic4 - 1-2 small Interpret Hypokinetic Dyskinetic 3-5 moderate 5 - 6-14 large Aneurysmal 15-16 diffuse : BHARATH SHELBY Andre
[2019-07-14] MEDS: PIPERACILLIN SODIUM/TAZOBACTAM 3.375 GM in NORMAL SALINE 100 ML IV SCH ×4 (05:39→23:10)
[2019-07-14 10:16] LABS: ABSOLUTE BASOPHILS # (AUTO) 0.1 10^3/uL (0.0-0.2); ABSOLUTE EOSINOPHILS # (AUTO) 0.9 10^3/uL (0.0-0.6); ABSOLUTE LYMPHOCYTES (AUTO) 2.3 10^3/uL (0.5-4.7); ABSOLUTE MONOCYTES (AUTO) 0.8 10^3/uL (0.1-1.4); BASOPHILS % (AUTO) 0.6 % (0-2); EOSINOPHILS % (AUTO) 10.3 % (0-6); HEMATOCRIT 40.5 % (37.9-51.0); HEMOGLOBIN 13.6 g/dL (13.5-17.0); LYMPHOCYTES % (AUTO) 25.7 % (13-45); MEAN CORPUSCULAR HEMOGLOBIN 27.3 pg (27.0-33.4); MEAN CORPUSCULAR HGB CONC 33.6 g/dL (32.0-36.0); MEAN CORPUSCULAR VOLUME 81 fl (80-97); MONOCYTES % (AUTO) 8.5 % (3-13); PLATELET COUNT 230 10^3/uL (150-450); RED BLOOD COUNT 4.98 10^6/uL (4.35-5.55); RED CELL DISTRIBUTION WIDTH 14.4 % (11.5-14.0); SEGMENTED NEUTROPHILS % (AUTO) 54.9 % (42-78); TOTAL CELLS COUNTED % (AUTO) 100 %; WHITE BLOOD COUNT 9.1 10^3/uL (4.0-10.5)
[2019-07-14 10:37] LABS: ANION GAP 10 (5-19); BLOOD UREA NITROGEN 13 mg/dL (7-20); CALCIUM 9.5 mg/dL (8.4-10.2); CARBON DIOXIDE 27 mmol/L (22-30); CHLORIDE 105 mmol/L (98-107); GLUCOSE 79 mg/dL (75-110); POTASSIUM 4.5 mmol/L (3.6-5.0)
[2019-07-14 10:42] LABS: VANCOMYCIN,TROUGH 5.6 ug/mL (5.0-20.0)
[2019-07-14] MEDS: NICOTINE 21 MG/24 HR PATCH.TD24 TD SCH (10:50)
[2019-07-14] MEDS: VANCOMYCIN HCL 1,500 MG in DEXTROSE 5%-WATER 250 ML IV SCH ×2 (10:51→19:18)
--- NOTE | 2019-07-14 11:00 | RADIOLOGY REPORT (SQ) ---
EXAM DESCRIPTION: CT CHEST WITH COMPLETED DATE/TIME: 07/13/2019 8:11 pm REASON FOR STUDY: possible lung abscess/loculated PNA COMPARISON: Chest films 07/12/2019, 07/10/2019 TECHNIQUE: CT scan of the chest performed using helical scanning technique with dynamic intravenous contrast injection. Images reviewed with lung, soft tissue and bone windows. Reconstructed coronal and sagittal MPR and MIP images reviewed. All images stored on PACS. All CT scanners at this facility use dose modulation, iterative reconstruction, and/or weight based d osing when appropriate to reduce radiation dose to as low as reasonably achievable (ALARA). [facility]: Dose Right [facility]: CareDose [facility]: Dose Right [facility]: Teradose 4D [facility]: Zursh CONTRAST TYPE AND DOSE: contrast/concentration: Isovue 350.00 mg/ml; Total Contrast Delivered: 73.5 ml; Total Saline Delivered: 20.0 ml RENAL FUNCTION: None required. The patient is less than 50 years old. RADIATION DOSE: CT Rad equipment meets quality standard of care and radiation dose reduction techniq ues were employed. CTDIvol: 5.9 mGy. DLP: 252 mGy-cm. . LIMITATIONS: None. FINDINGS: LUNGS AND PLEURA: Diffuse bilateral airspace disease is present worrisome for pneumonia. Atypical pneumonia should be considered, question mycoplasma. No cavitary lesions. No lung abscess. No pleural effusion. No pneumothorax. No worrisome nodules. Airways are patent. HILAR AND MEDIASTINAL STRUCTURES: No identified masses or abnormal nodes. HEART AND VASCULAR STRUCTURES: No aneurysm or dissection. No central pulmonary emboli. No pericardi al effusion. HARDWARE: None in the chest. UPPER ABDOMEN: No significant findings. Limited exam. THYROID AND OTHER SOFT TISSUES: No masses. No adenopathy. BONES: No significant finding. OTHER: No other significant finding. IMPRESSION: Diffuse bilateral alveolar and interstitial infiltrates, worrisome for pneumonia. Consi andrez atypical pneumonia. TECHNICAL DOCUMENTATION: JOB ID: [id number] Quality ID # [id number]: Final reports with documentation of one or more dose reduction techniques (e.g., Au tomated exposure control, adjustment of the mA and/or kV according to patient size, use of iterative reconstruction technique) 2010 [employer]- All Rights Reserved Reading location - IP/workstation name: [email or web address]
--- NOTE | 2019-07-14 12:37 | PDOC PROGRESS REPORT ---
Subjective Progress Note for:: 07/14/19 Subjective:: Patient is a 28-year-old -O[place] male who initially presented with drug overdose methamphetamine/Xanax/heroin and subsequent aspiration with respiratory failure, admitted to the ICU. Later stabilized for transfer to floor. Unfortunately, he continued spiking fevers and work-up for bacterial endocarditis aspiration pneumonia has begun. 07/13: Extensive discussion with patient and his mother today about my concerns for possible bacterial endocarditis. Patient states he is not worried about this at all and wants to leave the hospital as soon as possible. He was angry that the nurses have had such difficulty placing an IV on him and multiple blown IVs. 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 I offered to order the patient a PICC line which would alleviate this problem and he adamantly refused this. He also began getting angry and cursing about various aspects of his care in the hospital including the inability to smoke. TTE has been done but not read. Patient has no new complaints other than more productive cough and feeling poorly overall. 07/14: Pt agitated and stating he may leave AMA despite extensive d/w him and his mother today about his PNA and possible bacterial endocarditis. He is fully AAOx4 and is able to choose to leave AMA, however I strongly advised him against it. Ordered ALLYSON and cardiology consult for this week to eval suspicious possible TV vegetation. Reason For Visit: ACCIDENTAL NARCOTIC OD ON NARCAN DRIP Physical Exam Vital Signs: Temp Pulse Resp BP Pulse Ox 98.0 F 79 14 127/77 H 98 07/14/19 08:27 07/14/19 08:27 07/14/19 08:27 07/14/19 08:27 07/14/19 08:27 Intake & Output 07/13/19 07/14/19 07/15/19 06:59 06:59 06:59 Intake Total 2069 2309 350 Balance 2069 2309 350 Weight 61 kg 61.5 kg General appearance: PRESENT: no acute distress Head exam: PRESENT: atraumatic, normocephalic Eye exam: PRESENT: conjunctiva pink Mouth exam: PRESENT: moist Respiratory exam: PRESENT: crackles, rhonchi, unlabored. ABSENT: accessory muscle use, rales, wheezes Cardiovascular exam: PRESENT: RRR. ABSENT: diastolic murmur, rubs, systolic murmur GI/Abdominal exam: PRESENT: normal bowel sounds, soft. ABSENT: distended, guarding, mass, organolmegaly, rebound, tenderness Musculoskeletal exam: PRESENT: ambulatory Neurological exam: PRESENT: alert, awake Psychiatric exam: PRESENT: agitated Skin exam: PRESENT: dry, intact, warm Results Laboratory Results: 07/14/19 09:58 07/14/19 09:58 07/14/19 07/14/19 09:58 09:58 WBC 9.1 RBC 4.98 Hgb 13.6 Hct 40.5 MCV 81 MCH 27.3 MCHC 33.6 RDW 14.4 H Plt Count 230 Seg Neutrophils % 54.9 Sodium 141.9 Potassium 4.5 Chloride 105 Carbon Dioxide 27 Anion Gap 10 BUN 13 Creatinine 0.69 Est GFR ( Amer) > 60 Glucose 79 Calcium 9.5 07/10/19 17:48 Blood Blood Culture (PCR) - Final 07/12/19 17:30 Sputum Gram Stain - Final Impressions: Chest X-Ray 07/12/19 00:00 IMPRESSION: WORSENING FAINT AIRSPACE DISEASE. Chest CT 07/13/19 00:00 IMPRESSION: Diffuse bilateral alveolar and interstitial infiltrates, worrisome for pneumonia. Consider atypical pneumonia. Assessment and Plan - Diagnosis (1) Aspiration pneumonia due to inhalation of vomitus Is this a current diagnosis for this admission?: Yes Plan: Recurrent on admission after drug overdose Vancomycin/Zosyn IV started 07/12, tolerating well Respiratory culture Blood cultures Bronchial hygiene, supplemental oxygen as needed to maintain oxygen saturation 94% or greater, incentive spirometer Given that patient seemed to be worsening and his white blood cell count has shy again with recurring fevers intermittently, advanced chest imaging warranted to rule out empyema/loculated pneumonia which would necessitate a chest tube being placed; CT Chest w/ contrast showed pneumonia, possibly atypical, no PE/masses/empyema. (2) Sepsis Qualifiers: Sepsis type: sepsis due to unspecified organism Sepsis acute organ dysfunction status: with acute organ dysfunction Severe sepsis acute organ dysfunction type: acute respiratory failure Acute respiratory failure type: with hypoxia Severe sepsis shock status: without septic shock Qualified Code(s): A41.9 - Sepsis, unspecified organism; R65.20 - Severe sepsis without septic shock; J96.01 - Acute respiratory failure with hypoxia Is this a current diagnosis for this admission?: Yes Plan: Source is aspiration pneumonia, rule out bacterial endocarditis Broad antibiotics as above IV fluids as needed, if fluid unresponsiveness in ICU for pressors Recheck lactate if continued fevers and worsening symptoms TTE to rule out bacterial endocarditis, consult cardiology for their opinion on follow-up with ALLYSON afterwards Blood cultures on admission negative -resolved (3) Intravenous drug abuse, continuous Is this a current diagnosis for this admission?: Yes (4) Tobacco abuse Is this a current diagnosis for this admission?: Yes (5) Amphetamine abuse Is this a current diagnosis for this admission?: Yes (6) Acute hypoxemic respiratory failure Is this a current diagnosis for this admission?: Yes (7) Altered mental status Qualifiers: Altered mental status type: unspecified Qualified Code(s): R41.82 - Altered mental status, unspecified Is this a current diagnosis for this admission?: Yes (8) Atrial fib/flutter, transient Is this a current diagnosis for this admission?: Yes - Time Time Spent with patient: 35 or more minutes Medications reviewed and adjusted accordingly: Yes Anticipated discharge: Home - Inpatient Certification Medical Necessity: Significant Comorbidiites Make Outpatient Treatment Too Risky, Need Close Monitoring Due to Risk of Patient Decompensation, Need for IV Antibiotics
[2019-07-14] MEDS: ALBUTEROL SULFATE 0.083% NEB 2.5 MG/3 ML AMPUL NEB PRN (12:51)
[2019-07-15] MEDS: VANCOMYCIN HCL 1,500 MG in DEXTROSE 5%-WATER 250 ML IV SCH ×3 (03:48→21:13)
[2019-07-15] MEDS: PIPERACILLIN SODIUM/TAZOBACTAM 3.375 GM in NORMAL SALINE 100 ML IV SCH ×3 (06:42→18:16)
[2019-07-15] MEDS: NICOTINE 21 MG/24 HR PATCH.TD24 TD SCH (10:02)
[2019-07-15] MEDS: ALBUTEROL SULFATE 0.083% NEB 2.5 MG/3 ML AMPUL NEB PRN (11:24)
--- NOTE | 2019-07-15 12:49 | PDOC PROGRESS REPORT ---
Subjective Progress Note for:: 07/15/19 Subjective:: Patient is a 28-year-old -Niuean male who initially presented with drug overdose methamphetamine/Xanax/heroin and subsequent aspiration with respiratory failure, admitted to the ICU. Later stabilized for transfer to floor. Unfortunately, he continued spiking fevers and work-up for bacterial endocarditis aspiration pneumonia has begun. 07/13: Extensive discussion with patient and his mother today about my concerns for possible bacterial endocarditis. Patient states he is not worried about this at all and wants to leave the hospital as soon as possible. He was angry that the nurses have had such difficulty placing an IV on him and multiple blown IVs. 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 I offered to order the patient a PICC line which would alleviate this problem and he adamantly refused this. He also began getting angry and cursing about various aspects of his care in the hospital including the inability to smoke. TTE has been done but not read. Patient has no new complaints other than more productive cough and feeling poorly overall. 07/14: Pt agitated and stating he may leave AMA despite extensive d/w him and his mother today about his PNA and possible bacterial endocarditis. He is fully AAOx4 and is able to choose to leave AMA, however I strongly advised him against it. Ordered ALLYSON and cardiology consult for this week to eval suspicious possible TV vegetation. 07/15: Patient much calmer today. States his breathing and respiratory congestion is improved as well. Respiratory culture is growing E. coli. CT chest showed pneumonia. Patient agreeable to staying and he also agrees to check HIV and hepatitis panels on him given his IV drug abuse history. Cardi ology has been consulted to see patient this week and arrange ALLYSON. If the ALLYSON is negative and blood cultures remain negative, he could potentially be discharged with a short course of oral antibiotics to treat his pneumonia. Otherwise no new complaints. Reason For Visit: ACCIDENTAL NARCOTIC OD ON NARCAN DRIP Physical Exam Vital Signs: Temp Pulse Resp BP Pulse Ox 98.1 F 82 16 122/81 96 07/15/19 11:03 07/15/19 11:24 07/15/19 11:24 07/15/19 11:03 07/15/19 11:24 Intake & Output 07/14/19 07/15/19 07/16/19 06:59 06:59 06:59 Intake Total 2310 2460 360 Balance 2310 2460 360 Weight 61.5 kg 62.4 kg General appearance: PRESENT: no acute distress, well-developed, well-nourished Head exam: PRESENT: atraumatic, normocephalic Eye exam: PRESENT: conjunctiva pink Mouth exam: PRESENT: moist Respiratory exam: PRESENT: crackles - Mild bilaterally. ABSENT: rales, rhonchi, wheezes Cardiovascular exam: PRESENT: RRR. ABSENT: diastolic murmur, rubs, systolic murmur GI/Abdominal exam: PRESENT: normal bowel sounds, soft. ABSENT: distended, guarding, mass, organolmegaly, rebound, tenderness Musculoskeletal exam: PRESENT: ambulatory Neurological exam: PRESENT: alert, awake Psychiatric exam: PRESENT: appropriate affect, normal mood Skin exam: PRESENT: dry, intact, warm Results Laboratory Results: 07/14/19 09:58 07/14/19 09:58 07/10/19 17:48 Blood Blood Culture (PCR) - Final 07/12/19 17:30 Sputum Gram Stain - Final 07/12/19 17:30 Sputum Sputum Culture - Final Escherichia Coli Normal Laurie Impressions: Chest X-Ray 07/12/19 00:00 IMPRESSION: WORSENING FAINT AIRSPACE DISEASE. Chest CT 07/13/19 00:00 IMPRESSION: Diffuse bilateral alveolar and interstitial infiltrates, worrisome for pneumonia. Consider atypical pneumonia. Assessment and Plan - Diagnosis (1) Aspiration pneumonia due to inhalation of vomitus Is this a current diagnosis for this admission?: Yes Plan: Recurrent on admission after drug overdose Vancomycin/Zosyn IV started 07/12, tolerating well Respiratory culture growing E. coli Blood cultures no growth to date Bronchial hygiene, supplemental oxygen as needed to maintain oxygen saturation 94% or greater, incentive spirometer Given that patient seemed to be worsening and his white blood cell count has shy again with recurring fevers intermittently, advanced chest imaging warrante d to rule out empyema/loculated pneumonia which would necessitate a chest tube being placed; CT Chest w/ contrast showed pneumonia, possibly atypical, no PE/masses/empyema. (2) Sepsis Qualifiers: Sepsis type: sepsis due to unspecified organism Sepsis acute organ dysfunction status: with acute organ dysfunction Severe sepsis acute organ dysfunction type: acute respiratory failure Acute respiratory failure type: with hypoxia Severe sepsis shock status: without septic shock Qualified Code(s): A41.9 - Sepsis, unspecified organism; R65.20 - Severe sepsis without septic shock; J96.01 - Acute respiratory failure with hypoxia Is this a current diagnosis for this admission?: Yes (3) Intravenous drug abuse, continuous Is this a current diagnosis for this admission?: Yes Plan: At high risk for bacterial endocarditis, TTE showed possible tricuspid valve vegetation Cardiology consulted for ALLYSON If ALLYSON is clear, can stop vancomycin Counseled on cessation (4) Tobacco abuse Is this a current diagnosis for this admission?: Yes (5) Amphetamine abuse Is this a current diagnosis for this admission?: Yes (6) Acute hypoxemic respiratory failure Is this a current diagnosis for this admission?: Yes (7) Altered mental status Qualifiers: Altered mental status type: unspecified Qualified Code(s): R41.82 - Altered mental status, unspecified Is this a current diagnosis for this admission?: Yes (8) Atrial fib/flutter, transient Is this a current diagnosis for this admission?: Yes - Time Time Spent with patient: 25-34 minutes Medications reviewed and adjusted accordingly: Yes Anticipated discharge: Home Within: within 72 hours - Inpatient Certification Medical Necessity: Significant Comorbidiites Make Outpatient Treatment Too Risky, Need Close Monitoring Due to Risk of Patient Decompensation, Need for IV Antibiotics
[2019-07-16] MEDS: PIPERACILLIN SODIUM/TAZOBACTAM 3.375 GM in NORMAL SALINE 100 ML IV SCH ×4 (00:06→18:22)
[2019-07-16] MEDS: VANCOMYCIN HCL 1,500 MG in DEXTROSE 5%-WATER 250 ML IV SCH ×3 (03:14→21:55)
[2019-07-16] MEDS: NICOTINE 21 MG/24 HR PATCH.TD24 TD SCH (10:16)
[2019-07-16 11:20] LABS: VANCOMYCIN,TROUGH 16.9 ug/mL (5.0-20.0)
--- NOTE | 2019-07-16 12:35 | PDOC PROGRESS REPORT ---
Subjective Progress Note for:: 07/16/19 Subjective:: Patient states he feels well today. Complains of mild chest soreness but denies any significant shortness of breath. Cough is pretty much resolving at this point. Denies any fever or chills. Reason For Visit: ACCIDENTAL NARCOTIC OD ON NARCAN DRIP Physical Exam Vital Signs: Temp Pulse Resp BP Pulse Ox 98.0 F 79 16 132/78 H 97 07/16/19 07:53 07/16/19 07:53 07/16/19 07:53 07/16/19 07:53 07/16/19 07:53 Intake & Output 07/15/19 07/16/19 07/17/19 06:59 06:59 06:59 Intake Total 2460 2195 Balance 2460 2195 Weight 62.4 kg 63.8 kg General appearance: PRESENT: no acute distress, cooperative Respiratory exam: PRESENT: symmetrical, unlabored, wheezes - mild exp. ABSENT: rhonchi, tachypnea Cardiovascular exam: PRESENT: RRR, +S1, +S2. ABSENT: diastolic murmur, systolic murmur, tachycardia GI/Abdominal exam: PRESENT: normal bowel sounds, soft. ABSENT: rebound, rigid, tenderness Neurological exam: PRESENT: alert, awake, oriented to person, oriented to place, oriented to time Results Laboratory Results: 07/14/19 09:58 07/14/19 09:58 07/10/19 17:51 Blood Blood Culture - Final NO GROWTH IN 5 DAYS 07/10/19 17:48 Blood Blood Culture (PCR) - Final 07/10/19 17:48 Blood Blood Culture - Final Corynebacterium Species Impressions: Chest X-Ray 07/12/19 00:00 IMPRESSION: WORSENING FAINT AIRSPACE DISEASE. Chest CT 07/13/19 00:00 IMPRESSION: Diffuse bilateral alveolar and interstitial infiltrates, worrisome for pneumonia. Consider atypical pneumonia. Assessment and Plan - Diagnosis (1) Aspiration pneumonia due to inhalation of vomitus Is this a current diagnosis for this admission?: Yes Plan: Recurrent on admission after drug overdose Vancomycin/Zosyn IV day 5--> de-escalate to p.o. Levaquin or augmentin starting tomorrow Respiratory culture growing E. coli Blood cultures no growth to date -CT chest showed multifocal infiltrates but no empyema (2) Intravenous drug abuse, continuous Is this a current diagnosis for this admission?: Yes Plan: At high risk for bacterial endocarditis, TTE showed possible tricuspid valve vegetation Cardiology consulted for ALLYSON which will be done tomorrow afternoon (3) Acute hypoxemic respiratory failure Is this a current diagnosis for this admission?: Yes Plan: Secondary to aspiration. Currently resolved. Patient is maintaining good sats on room air. (4) Sepsis Qualifiers: Sepsis type: sepsis due to unspecified organism Sepsis acute organ dysfunction status: with acute organ dysfunction Severe sepsis acute organ dysfunction type: acute respiratory failure Acute respiratory failure type: with hypoxia Severe sepsis shock status: without septic shock Qualified Cod e(s): A41.9 - Sepsis, unspecified organism; R65.20 - Severe sepsis without septic shock; J96.01 - Acute respiratory failure with hypoxia Is this a current diagnosis for this admission?: Yes Plan: Resolved (5) Tobacco abuse Is this a current diagnosis for this admission?: Yes Plan: daily nicotine patch nicotine patch per patient request to help with smoking braydon sation (6) Atrial fib/flutter, transient Is this a current diagnosis for this admission?: Yes Plan: Paroxysmal atrial fibrillation/flutter noted by former provider but has currently resolved. - Time Time Spent with patient: Less than 15 minutes
[2019-07-16] MEDS ORDERED: DEXTROSE 40% GEL 15 GM TUBE PO PRN ×2 (12:36)
[2019-07-16] MEDS ORDERED: DEXTROSE 50%-WATER 25 GM/50 ML DISP.SYRIN IV PRN ×2 (12:36)
[2019-07-16] MEDS ORDERED: GLUCAGON,HUMAN RECOMB 1 MG INJ SUBCUT PRN (12:36)
[2019-07-17] MEDS: PIPERACILLIN SODIUM/TAZOBACTAM 3.375 GM in NORMAL SALINE 100 ML IV SCH ×4 (00:53→18:48)
[2019-07-17] MEDS: VANCOMYCIN HCL 1,500 MG in DEXTROSE 5%-WATER 250 ML IV SCH ×3 (04:19→20:58)
[2019-07-17 05:37] LABS: HEPATITS B SURFACE ANTIGEN Negative (Negative)
[2019-07-17 06:00] LABS: HEMATOCRIT 41.7 % (37.9-51.0); HEMOGLOBIN 14.1 g/dL (13.5-17.0); MEAN CORPUSCULAR HEMOGLOBIN 27.5 pg (27.0-33.4); MEAN CORPUSCULAR HGB CONC 33.8 g/dL (32.0-36.0); MEAN CORPUSCULAR VOLUME 81 fl (80-97); PLATELET COUNT 356 10^3/uL (150-450); RED BLOOD COUNT 5.13 10^6/uL (4.35-5.55); RED CELL DISTRIBUTION WIDTH 14.4 % (11.5-14.0); WHITE BLOOD COUNT 14.9 10^3/uL (4.0-10.5)
[2019-07-17 06:08] LABS: INTERNATIONAL RATION (INR) 0.94; PARTIAL THROMBOPLASTIN TIME 29.8 SEC (23.5-35.8); PROTHROMBIN TIME 12.6 SEC (11.4-15.4)
[2019-07-17 06:20] LABS: ANION GAP 9 (5-19); BLOOD UREA NITROGEN 16 mg/dL (7-20); CALCIUM 9.3 mg/dL (8.4-10.2); CARBON DIOXIDE 27 mmol/L (22-30); CHLORIDE 102 mmol/L (98-107); GLUCOSE 98 mg/dL (75-110); POTASSIUM 4.7 mmol/L (3.6-5.0)
[2019-07-17 06:32] LABS: ABSOLUTE MONOCYTES # (MANUAL) 0.6 10^3/uL (0.1-1.4); BAND NEUTROPHILS % (MANUAL) 1 % (3-5); BASOPHILS % (MANUAL) 0 % (0-2); EOSINOPHILS % (MANUAL) 12 % (0-6); LYMPHOCYTES % (MANUAL) 39 % (13-45); MONOCYTES % (MANUAL) 4 % (3-13); SEGMENTED NEUTROPHILS % (MAN) 43 % (42-78); TOTAL CELLS COUNTED 100
[2019-07-17 06:33] LABS: PLATELET COMMENT ADEQUATE; RBC MORPHOLOGY COMMENT NORMO-CYTIC/CHROMIC
[2019-07-17 07:22] LABS: HEPATITIS C VIRUS ANTIBODY >11.0 s/co ratio (0.0-0.9)
[2019-07-17] MEDS: NICOTINE 21 MG/24 HR PATCH.TD24 TD SCH (09:03)
--- NOTE | 2019-07-17 13:19 | PDOC PROGRESS REPORT ---
Subjective Progress Note for:: 07/17/19 Subjective:: Patient has no complaints today. He is disappointed that he has to wait on a day to get a ALLYSON done. Otherwise denies any chest pain or shortness of breath. Mild soreness in the chest still from initial presentation. Reason For Visit: ACCIDENTAL NARCOTIC OD ON NARCAN DRIP Physical Exam Vital Signs: Temp Pulse Resp BP Pulse Ox 97.9 F 81 16 121/82 97 07/17/19 07:58 07/17/19 09:53 07/17/19 09:53 07/17/19 07:58 07/17/19 09:53 Intake & Output 07/16/19 07/17/19 07/18/19 06:59 06:59 06:59 Intake Total 2195 2630 Balance 2195 2630 Weight 63.8 kg 63.8 kg General appearance: PRESENT: no acute distress, cooperative Neck exam: ABSENT: JVD Respiratory exam: PRESENT: clear to auscultation michelle Cardiovascular exam: PRESENT: RRR, +S1, +S2. ABSENT: diastolic murmur, systolic murmur, tachycardia Neurological exam: PRESENT: alert, awake Results Laboratory Results: 07/17/19 04:16 07/17/19 04:16 07/17/19 07/17/19 04:16 04:16 WBC 14.9 H RBC 5.13 Hgb 14.1 Hct 41.7 MCV 81 MCH 27.5 MCHC 33.8 RDW 14.4 H Plt Count 356 Seg Neutrophils % Not Reportable Sodium 138.3 Potassium 4.7 Chloride 102 Carbon Dioxide 27 Anion Gap 9 BUN 16 Creatinine 0.80 Est GFR ( Amer) > 60 Glucose 98 Calcium 9.3 Magnesium 2.2 Impressions: Chest X-Ray 07/12/19 00:00 IMPRESSION: WORSENING FAINT AIRSPACE DISEASE. Chest CT 07/13/19 00:00 IMPRESSION: Diffuse bilateral alveolar and interstitial infiltrates, worrisome for pneumonia. Consider atypical pneumonia. Assessment and Plan - Diagnosis (1) Aspiration pneumonia due to inhalation of vomitus Is this a current diagnosis for this admission?: Yes Plan: Recurrent on admission after drug overdose Vancomycin/Zosyn IV day 6--> de-escalate to p.o. Levaquin after ALLYSON Respiratory culture growing E. coli Blood cultures negative -CT chest showed multifocal infiltrates but no empyema (2) Intravenous drug abuse, continuous Is this a current diagnosis for this admission?: Yes Plan: At high risk for bacterial endocarditis, TTE showed possible tricuspid valve vegetation Cardiology consulted for ALLYSON which has been pushed back to tomorrow morning (3) Acute hypoxemic respiratory failure Is this a current diagnosis for this admission?: Yes (4) Sepsis Qualifiers: Sepsis type: sepsis due to unspecified organism Sepsis acute organ dysfunction status: with acute organ dysfunction Severe sepsis acute organ dysfunction type: acute respiratory failure Acute respiratory failure type: with hypoxia Severe sepsis shock status: without septic shock Qualified Code(s): A41.9 - Sepsis, unspecified organism; R65.20 - Severe sepsis without septic shock; J96.01 - Acute respiratory failure with hypoxia Is this a current diagnosis for this admission?: Yes (5) Tobacco abuse Is this a current diagnosis for this admission?: Yes (6) Atrial fib/flutter, transient Is this a current diagnosis for this admission?: Yes - Time Time Spent with patient: Less than 15 minutes
--- NOTE | 2019-07-17 13:22 | Progress Note ---
Provider Note Provider Note: [facility] Telephone Advice Consultation Chart reviewed and discussed with pharmacy. Patient is a 28-year-old man with history of drug abuse who had an accidental overdose and was admitted to the [facility] pital unconscious. He required narcan drip in the ICU with adequate response. He aspirated as well, initially pneumonitis, but it complicated with pneumonia. He has improved clinically and he is stable. Blood cultures positive for Corynebacterium in 1 set and respiratory cultures with E coli. CT scan of the chest on 07/13 demonstrating bilateral airspace disease. He has been on vancomycin and Zosyn. He had a TTE that demonstrated a possible calcified vegetation in the tricuspid valve. He was awaiting ALYLSON to better describe this TV finding. He is overall stable, no fever, no leukocytosis, feeling better per notes. Allergies: No Known Allergies Allergy (Unverified 10/30/18 10:56) Medications: No medications Vital Signs: Temp Pulse Resp BP Pulse Ox 97.9 F 81 16 121/82 97 07/17/19 07:58 07/17/19 09:53 07/17/19 09:53 07/17/19 07:58 07/17/19 09:53 Intake & Output 07/16/19 07/17/19 07/18/19 06:59 06:59 06:59 Intake Total 2195 2630 Balance 2195 2630 Weight 63.8 kg 63.8 kg Weight/Height Weight 63.8 kg Height 5 ft 6 in Laboratories: 07/17/19 04:16 07/17/19 04:16 MCV 81 fl (80-97) 07/17/19 04:16 MCH 27.5 pg (27.0-33.4) 07/17/19 04:16 MCHC 33.8 g/dL (32.0-36.0) 07/17/19 04:16 RDW 14.4 % (11.5-14.0) H 07/17/19 04:16 Seg Neutrophils % Not Reportable 07/17/19 04:16 Chloride 102 mmol/L (98-107) 07/17/19 04:16 Carbon Dioxide 27 mmol/L (22-30) 07/17/19 04:16 Anion Gap 9 (5-19) 07/17/19 04:16 Est GFR ( Amer) > 60 (>60) 07/17/19 04:16 Glucose 98 mg/dL (75-110) 07/17/19 04:16 Lactic Acid 1.1 mmol/L (0.7-2.1) 07/12/19 10:04 Calcium 9.3 mg/dL (8.4-10.2) 07/17/19 04:16 Magnesium 2.2 mg/dL (1.6-2.3) 07/17/19 04:16 Total Bilirubin 0.3 mg/dL (0.2-1.3) 07/10/19 12:56 AST 38 U/L (17-59) 07/10/19 12:56 Alkaline Phosphatase 108 U/L (38-126) 07/10/19 12:56 Total Protein 7.9 g/dL (6.3-8.2) 07/10/19 12:56 Albumin 5.0 g/dL (3.5-5.0) 07/10/19 12:56 Urine Color YELLOW 07/10/19 16:56 Urine Appearance SLIGHTLY-CLOUDY 07/10/19 16:56 Urine pH 5.0 (5.0-9.0) 07/10/19 16:56 Ur Specific Rang[place] 1.018 07/10/19 16:56 Urine Protein 100 mg/dL (NEGATIVE) H 07/10/19 16:56 Urine Glucose (UA) >=500 mg/dL (NEGATIVE) H 07/10/19 16:56 Urine Ketones NEGATIVE mg/dL (NEGATIVE) 07/10/19 16:56 Urine Blood NEGATIVE (NEGATIVE) 07/10/19 16:56 Urine Nitrite NEGATIVE (NEGATIVE) 07/10/19 16:56 Ur Leukocyte Esterase NEGATIVE (NEGATIVE) 07/10/19 16:56 Urine WBC (Auto) 8 /HPF 07/10/19 16:56 Urine RBC (Auto) 2 /HPF 07/10/19 16:56 Microbiology: Blood Culture Corynebacterium Respiratory Culture E coli Radiology: Chest X-Ray 07/12/19 00:00 IMPRESSION: WORSENING FAINT AIRSPACE DISEASE. Chest CT 07/13/19 00:00 IMPRESSION: Diffuse bilateral alveolar and interstitial infiltrates, worrisome for pneumonia. Consider atypical pneumonia. Assessment and Recommendations: Patient with accidental drug overdose admitted to the ICU for narcan drip with adequate response. He had aspiration oneumonitis that complicated with pneumoni a by E coli, very susceptible. Blood cultures with Corynebacterium more likely represent skin contamination. TV finding probably an old vegetation as Corynebacterium is not a common cause of endocarditis, usually a skin contaminant. Will recommend to de escalate antibiotic therapy to ceftriaxone 2g IV daily to complete 8 days of therapy. If ALLYSON findings are concerning for an acute process, please call back. Priscila Leung MD [facility] ID [id number]
[2019-07-18] MEDS: PIPERACILLIN SODIUM/TAZOBACTAM 3.375 GM in NORMAL SALINE 100 ML IV SCH ×3 (00:10→11:39)
[2019-07-18] MEDS: VANCOMYCIN HCL 1,500 MG in DEXTROSE 5%-WATER 250 ML IV SCH ×2 (03:48→12:52)
[2019-07-18] MEDS ORDERED: DIPHENHYDRAMINE HCL 50 MG/ML VIAL ONE (07:47)
[2019-07-18] MEDS ORDERED: FENTANYL CITRATE INJ/PF 100 MCG/2 ML AMPUL ONE (07:47)
[2019-07-18] MEDS ORDERED: NALOXONE HCL INJ/PF 0.4 MG/1 ML SDV ONE (07:47)
[2019-07-18] MEDS ORDERED: FLUMAZENIL INJ 0.5 MG/5 ML VIAL ONE (07:48)
[2019-07-18] MEDS ORDERED: BENZOCAINE 20% AEROSOL SPRAY 60 GM ONE (07:48)
[2019-07-18] MEDS ORDERED: LIDOCAINE 2% JELLY 30 ML TUBE ONE (07:48)
[2019-07-18] MEDS: MIDAZOLAM 2 MG/2 ML INJ ONE ×3 (08:13→08:17)
--- NOTE | 2019-07-18 08:52 | XCELERA REPORT ---
Study ID: [id number] [address] [id number] Transesophageal Echocardiogram Report Name: JADE THAKKAR Age: 28 yrs Gender: Male : 1990 Patient Status: Inpatient Patient Location: [address] [place] [address] Study Date: 07/18/2019 07:53 AM History: Bacteremia IVDU Reason For Study: suspected bacterial endocarditis Ordering Physician: BHARATH SHELBY Performed By: Maxine Gallego Interpretation Summary There is no evidence of a mass or vegetation. This does not rule out endocarditis. Left ventricular systolic function is normal. Ejection Fraction = >55%. The right ventricle is normal in size and function. There is trace mitral regurgitation. There is trace tricuspid regurgitation. No hemodynamically significant valvular aortic stenosis. There is no pericardial effusion. There is no evidence of a mass or vegetation. This does not rule out endocarditis. Procedure A complete two-dimensional transesophageal echocardiogram was performed (2D, spectral and color flow Doppler). Informed consent for Transesophageal Echocardiogram, and use of a contrast agent as needed, was obtained prior to the procedure. The patient was brought to the endoscopy in a fasting state. An intravenous line was placed. A topical anesthetic agent was used for oropharangeal anesthesia. A bite block was inserted. IV conscious sedation was administered using Midazolam 3 mg and Fentanyl 50 mcg IV. The patient's vital signs, including blood pressure, heart rate, pulse oximetry and cardiac rhythm were monitored thoughout the procedure. The transesophageal probe was passed without difficulty. The usual views were obtained; basal, mid-esophageal, transgastric and aortic views. The patient tolerated the procedure well without evidence of orophangeal or esophageal trauma. Subsequent to all the images being obtained the probe was removed with out trauma. Left Ventricle The left ventricle is normal in size. There is no thrombus. There is normal left ventricular wall thickness. Left ventricular systolic function is normal. Ejection Fraction = >55%. The left ventricular wall motion is normal. Right Ventricle The right ventricle is normal in size and function. Atria The interatrial septum is intact with no evidence for an atrial septal defect. The left atrial size is normal. Right atrial size is normal. Mitral Valve The mitral valve is normal in structure and function. There is no vegetation seen on the mitral valve. There is trace mitral regurgitation. Tricuspid Valve The tricuspid valve is normal in structure and function. There is no tricuspid valve vegetation. There is trace tricuspid regurgitation. Aortic Valve The aortic valve is normal in structure and function. The aortic valve is trileaflet. There is no aortic valvular vegetation. No hemodynamically significant valvular aortic stenosis. No aortic regurgitation is present. Pulmonic Valve The pulmonic valve is not well seen, but is grossly normal. The pulmonic valve is not well visualized. There is no vegetation on the pulmonic valve. There is no pulmonic valvular regurgitation. Arteries The aortic root is normal size. Pericardium There is no pericardial effusion. : BHARATH SHELBY Anil
[2019-07-18 10:30] LABS: HEMATOCRIT 42.4 % (37.9-51.0); MEAN CORPUSCULAR HEMOGLOBIN 27.1 pg (27.0-33.4); MEAN CORPUSCULAR VOLUME 82 fl (80-97); PLATELET COUNT 396 10^3/uL (150-450); RED BLOOD COUNT 5.17 10^6/uL (4.35-5.55); RED CELL DISTRIBUTION WIDTH 14.6 % (11.5-14.0); WHITE BLOOD COUNT 14.5 10^3/uL (4.0-10.5)
[2019-07-18 10:40] LABS: ANION GAP 12 (5-19); BLOOD UREA NITROGEN 16 mg/dL (7-20); CALCIUM 9.7 mg/dL (8.4-10.2); CARBON DIOXIDE 26 mmol/L (22-30); CHLORIDE 101 mmol/L (98-107); GLUCOSE 138 mg/dL (75-110)
[2019-07-18 11:05] LABS: ABSOLUTE LYMPHOCYTES# (MANUAL) 3.8 10^3/uL (0.5-4.7); ABSOLUTE MONOCYTES # (MANUAL) 0.9 10^3/uL (0.1-1.4); BAND NEUTROPHILS % (MANUAL) 2 % (3-5); BASOPHILS % (MANUAL) 2 % (0-2); EOSINOPHILS % (MANUAL) 6 % (0-6); LYMPHOCYTES % (MANUAL) 23 % (13-45); MONOCYTES % (MANUAL) 6 % (3-13); SEGMENTED NEUTROPHILS % (MAN) 58 % (42-78); TOTAL CELLS COUNTED 100; TOXIC VACUOLATION PRESENT
[2019-07-18 11:06] LABS: ANISOCYTOSIS SLIGHT; PLATELET COMMENT ADEQUATE
[2019-07-18] MEDS: NICOTINE 21 MG/24 HR PATCH.TD24 TD SCH (11:37)
--- NOTE | 2019-07-18 13:11 | PDOC DISCHARGE SUMMARY ---
Impression - Admit/DC Date/PCP Admission Date/Primary Care Provider: 07/10/19 17:16 Discharge Date: 07/18/19 - Discharge Diagnosis (1) Aspiration pneumonia due to inhalation of vomitus Is this a current diagnosis for this admission?: Yes (2) Intravenous drug abuse, continuous Is this a current diagnosis for this admission?: Yes (3) Acute hypoxemic respiratory failure Is this a current diagnosis for this admission?: Yes (4) Sepsis Is this a current diagnosis for this admission?: Yes (5) Tobacco abuse Is this a current diagnosis for this admission?: Yes (6) Paroxysmal A-fib Is this a current diagnosis for this admission?: Yes - Additional Information Resuscitation Status: Full Code Discharge Diet: Regular Discharge Activity: Activity As Tolerated Referrals: [facility] [Outside] (THE DOCTOR SCHEDULE IS NOT YET IN. [facility] WILL CONTACTTHE PATIENT WITH AN APPT) Prescriptions: Ciprofloxacin HCl [Cipro 500 mg Tablet] 500 mg PO BID #8 tablet Home Medications: Ciprofloxacin HCl [Cipro 500 mg Tablet] 500 mg PO BID #8 tablet 07/18/19 History of Present Illiness History of Present Illness: JADE THAKKAR is a 28 year old male was found by friends on the floor of a room minimally responsive and taken to the ED where he was given narcan and responded. He has a history of drug abuse and according to family is employed has not missed work and is not 'hard core' addict nor has he been suicidal. This seems to be an accidental OD. He was placed on a narcan drip but became agitated and pulled out iv stood up to go to the bathroom and collapsed back in bed minimally responsive again. IV restarted and narcan drip reapplied necessitating the ICU admission. Of note he was found in vomit and appears to have aspirated with an infiltrate on his L base. Temp initially 92. Now 96. In afib on admission now NSR. Hospital Course Hospital Course: Patient was admitted after found to be unresponsive from overdosing on narcotics. Patient was restarted on the Narcan drip in the ER was subsequently admitted to the ICU. Patient was continued on the Narcan drip in the ICU. Patient was also noted to have had some aspiration pneumonia causing sepsis with acute hypoxic respiratory failure requiring oxygen supplementation and started on antibiotics. Patient was later de-escalated to the medical floor when taken off the Narcan drip. Patient's blood culture was positive for Corynebacterium for which patient had a TTE performed. The TTE showed questionable vegetation in the tricuspid valve. Given patient's history of drug abuse, patient was scheduled for a ALLYSON to rule out endocarditis. ALLYSON was performed today which showed no evidence of vegetations in the heart valves. Sputum culture grew E. coli. Patient has received IV broad-spectrum antibiotics for his pneumonia and is currently being discharged with p.o. ciprofloxacin to continue for 4 more days. Patient is stable and safe for discharge at this time. Physical Exam Vital Signs: Temp Pulse Resp BP Pulse Ox 97.3 F 75 18 120/69 98 07/18/19 07:31 07/18/19 08:45 07/18/19 08:45 07/18/19 08:45 07/18/19 08:45 Intake & Output 07/17/19 07/18/19 07/19/19 06:59 06:59 06:59 Intake Total 2630 2200 440 Balance 2630 2200 440 Weight 63.8 kg 63.5 kg General appearance: PRESENT: no acute distress, cooperative Neck exam: ABSENT: JVD Respiratory exam: PRESENT: clear to auscultation michelle Neurological exam: PRESENT: alert, awake, oriented to person, oriented to place, oriented to time Results Laboratory Results: WBC 14.5 10^3/uL (4.0-10.5) H 07/18/19 09:35 RBC 5.17 10^6/uL (4.35-5.55) 07/18/19 09:35 Hgb 14.0 g/dL (13.5-17.0) 07/18/19 09:35 Hct 42.4 % (37.9-51.0) 07/18/19 09:35 MCV 82 fl (80-97) 07/18/19 09:35 MCH 27.1 pg (27.0-33.4) 07/18/19 09:35 MCHC 33.0 g/dL (32.0-36.0) 07/18/19 09:35 RDW 14.6 % (11.5-14.0) H 07/18/19 09:35 Plt Count 396 10^3/uL (150-450) 07/18/19 09:35 Lymph % (Auto) Not Reportable 07/18/19 09:35 Morton % (Auto) Not Reportable 07/18/19 09:35 Eos % (Auto) Not Reportable 07/18/19 09:35 Baso % (Auto) Not Reportable 07/18/19 09:35 Absolute Neuts (auto) Not Reportable 07/18/19 09:35 Absolute Lymphs (auto) Not Reportable 07/18/19 09:35 Absolute Monos (auto) Not Reportable 07/18/19 09:35 Absolute Eos (auto) Not Reportable 07/18/19 09:35 Absolute Basos (auto) Not Reportable 07/18/19 09:35 Total Counted 100 07/18/19 09:35 Seg Neutrophils % Not Reportable 07/18/19 09:35 Seg Neuts % (Manual) 58 % (42-78) 07/18/19 09:35 Band Neutrophils % 2 % (3-5) L 07/18/19 09:35 Lymphocytes % (Manual) 23 % (13-45) 07/18/19 09:35 Atypical Lymphs % 3 % (0) 07/18/19 09:35 Monocytes % (Manual) 6 % (3-13) 07/18/19 09:35 Eosinophils % (Manual) 6 % (0-6) 07/18/19 09:35 Basophils % (Manual) 2 % (0-2) 07/18/19 09:35 Abs Neuts (Manual) 8.7 10^3/uL (1.7-8.2) H 07/18/19 09:35 Abs Lymphs (Manual) 3.8 10^3/uL (0.5-4.7) 07/18/19 09:35 Abs Monocytes (Manual) 0.9 10^3/uL (0.1-1.4) 07/18/19 09:35 Absolute Eos (Manual) 0.9 10^3/uL (0.0-0.6) H 07/18/19 09:35 Abs Basophils (Manual) 0.3 10^3/uL (0.0-0.2) H 07/18/19 09:35 Toxic Vacuolation PRESENT 07/18/19 09:35 Platelet Comment ADEQUATE 07/18/19 09:35 Anisocytosis SLIGHT 07/18/19 09:35 RBC Morph Comment NORMO-CYTIC/CHROMIC 07/17/19 04:16 PT 12.6 SEC (11.4-15.4) 07/17/19 04:16 INR 0.94 07/17/19 04:16 APTT 29.8 SEC (23.5-35.8) 07/17/19 04:16 Sodium 139.1 mmol/L (137-145) 07/18/19 09:35 Potassium 5.0 mmol/L (3.6-5.0) 07/18/19 09:35 Chloride 101 mmol/L (98-107) 07/18/19 09:35 Carbon Dioxide 26 mmol/L (22-30) 07/18/19 09:35 Anion Gap 12 (5-19) 07/18/19 09:35 BUN 16 mg/dL (7-20) 07/18/19 09:35 Creatinine 0.77 mg/dL (0.52-1.25) 07/18/19 09:35 Est GFR ( Amer) > 60 (>60) 07/18/19 09:35 Est GFR (MDRD) Non-Af > 60 (>60) 07/18/19 09:35 Glucose 138 mg/dL (75-110) H 07/18/19 09:35 POC Glucose 92 mg/dL (70-110) 07/10/19 23:54 Lactic Acid 1.1 mmol/L (0.7-2.1) 07/12/19 10:04 Calcium 9.7 mg/dL (8.4-10.2) 07/18/19 09:35 Magnesium 2.2 mg/dL (1.6-2.3) 07/17/19 04:16 Total Bilirubin 0.3 mg/dL (0.2-1.3) 07/10/19 12:56 Direct Bilirubin 0.0 mg/dL (0.0-0.4) 07/10/19 12:56 Neonat Total Bilirubin Not Reportable 07/10/19 12:56 Neonat Direct Bilirubin Not Reportable 07/10/19 12:56 Neonat Indirect Bili Not Reportable 07/10/19 12:56 AST 38 U/L (17-59) 07/10/19 12:56 ALT 28 U/L (<50) 07/10/19 12:56 Alkaline Phosphatase 108 U/L (38-126) 07/10/19 12:56 Total Protein 7.9 g/dL (6.3-8.2) 07/10/19 12:56 Albumin 5.0 g/dL (3.5-5.0) 07/10/19 12:56 Urine Color YELLOW 07/10/19 16:56 Urine Appearance SLIGHTLY-CLOUDY 07/10/19 16:56 Urine pH 5.0 (5.0-9.0) 07/10/19 16:56 Ur Specific [place] 1.018 07/10/19 16:56 Urine Protein 100 mg/dL (NEGATIVE) H 07/10/19 16:56 Urine Glucose (UA) >=500 mg/dL (NEGATIVE) H 07/10/19 16:56 Urine Ketones NEGATIVE mg/dL (NEGATIVE) 07/10/19 16:56 Urine Blood NEGATIVE (NEGATIVE) 07/10/19 16:56 Urine Nitrite NEGATIVE (NEGATIVE) 07/10/19 16:56 Urine Bilirubin NEGATIVE (NEGATIVE) 07/10/19 16:56 Urine Urobilinogen NEGATIVE mg/dL (<2.0) 07/10/19 16:56 Ur Leukocyte Esterase NEGATIVE (NEGATIVE) 07/10/19 16:56 Urine WBC (Auto) 8 /HPF 07/10/19 16:56 Urine RBC (Auto) 2 /HPF 07/10/19 16:56 U Hyaline Cast (Auto) 13 /LPF 07/10/19 16:56 Squamous Epi Cells Auto <1 /HPF 07/10/19 16:56 Amorphous Sediment Auto TRACE /HPF 07/10/19 16:56 Urine Mucus (Auto) FEW /LPF 07/10/19 16:56 Urine Ascorbic Acid 20 (NEGATIVE) H 07/10/19 16:56 Time Trough Drawn 1025 07/16/19 10:25 Vancomycin Trough 16.9 ug/mL (5.0-20.0) 07/16/19 10:25 Salicylates < 1.0 mg/dL (2.0-20.0) L 07/10/19 12:56 Urine Opiates Screen UNCONFIRMED POSITIVE 07/10/19 16:56 Urine Methadone Screen NEGATIVE 07/10/19 16:56 Acetaminophen < 10 ug/mL (10-30) L 07/10/19 12:56 Ur Barbiturates Screen NEGATIVE 07/10/19 16:56 Ur Phencyclidine Scrn NEGATIVE 07/10/19 16:56 Ur Amphetamines Screen 07/10/19 16:56 U Benzodiazepines Scrn UNCONFIRMED POSITIVE 07/10/19 16:56 Urine Cocaine Screen NEGATIVE 07/10/19 16:56 U Marijuana (THC) Screen UNCONFIRMED POSITIVE 07/10/19 16:56 Serum Alcohol < 10 mg/dL (NONE DETECTED) 07/10/19 12:56 Hepatitis A IgM Ab Negative (Negative) 07/15/19 14:08 Hep Bs Antigen Negative (Negative) 07/15/19 14:08 Hep B Core IgM Ab Negative (Negative) 07/15/19 14:08 Hepatitis C Antibody >11.0 s/co ratio (0.0-0.9) H 07/15/19 14:08 HIV 1&2 Antibody NEGATIVE (NEGATIVE) 07/15/19 14:08 Impressions: Chest X-Ray 07/10/19 15:43 IMPRESSION: AIRSPACE DISEASE IN THE LEFT LOWER LOBE MAY BE DUE TO PNEUMONIA AND/OR ASPIRATION. POSSIBLE FAINT INVOLVEMENT OF THE UPPER LOBES. Chest X-Ray 07/12/19 00:00 IMPRESSION: WORSENING FAINT AIRSPACE DISEASE. Chest CT 07/13/19 00:00 IMPRESSION: Diffuse bilateral alveolar and interstitial infiltrates, worrisome for pneumonia. Consider atypical pneumonia. Plan Health Concerns: Patient counseled of the dangers should this occur again. Does not want rehab. "I just went to a green party and overdid it". This was in front of his mother. Goals: Sobriety. Time Spent: Less than 30 Minutes Stroke Is this a Stroke Patient?: No Acute Heart Failure - Is this a Heart Failure Patient?: No
[2019-07-18 14:07] VITALS: BP 132/78
== END 2019-07-18 14:33 | disposition home or self-care (01) | DRG 177 ==
LOC: ER 12:36 → EH 17:16 → ICU 18:32 → 4N 07-11 18:30
PROVIDERS: ADMIT Anesthesiology; ATTEND Internal Medicine
DX: J69.0 Pneumonitis due to inhalation of food and vomit (principal); J96.01 Acute respiratory failure with hypoxia; A41.9 Sepsis, unspecified organism; R65.20 Severe sepsis without septic shock; T17.818A Gastric contents in other parts of respiratory tract causing other injury, initial encounter; I48.92 Unspecified atrial flutter; T40.1X1A Poisoning by heroin, accidental (unintentional), initial encounter; I48.0 Paroxysmal atrial fibrillation; F15.10 Other stimulant abuse, uncomplicated; R41.82 Altered mental status, unspecified; R68.0 Hypothermia, not associated with low environmental temperature; B96.20 Unspecified Escherichia coli [E. coli] as the cause of diseases classified elsewhere; F17.210 Nicotine dependence, cigarettes, uncomplicated; X58.XXXA Exposure to other specified factors, initial encounter; Y93.89 Activity, other specified; Y92.098 Other place in other non-institutional residence as the place of occurrence of the external cause
CPT/HCPCS: 36415; 71045; 71046; 71260; 80048; 80053; 80074; 80202; 80307; 81001; 82962; 83605; 83735; 85025; 85610; 85730; 86701; 87040; 87070; 87077; 87150; 87186; 87205; 93005; 93010; 93306; 93312; 93325; 94640; 94799; 96365; 96366; 96374; 99231; 99291; J1200; J1650; J2250; J2310; J2543; J3010; J3370; J3490; J7030; J7040; J7050; J7060